=== PATIENT | female | born 1960 | race Hispanic/Latino ===

== ENCOUNTER 2023-11-01 19:36 | Emergency (ER) | payer MEDICARE, OTHER ==
[~2023-11-01] VITALS: Ht 157.5 cm; Wt 107.5 kg
[2023-11-01 20:03] VITALS: BP 170/76; PULSE 98; RESP 20; O2SAT 97
[2023-11-01] MEDS: OCTYL 2-CYANOACRYLATE 1 EACH TP ONE (20:05)
== END 2023-11-01 20:16 | disposition home or self-care (01) ==
LOC: EDH 19:36
DX: S61.011A Laceration without foreign body of right thumb without damage to nail, initial encounter (principal); Z79.01 Long term (current) use of anticoagulants; Z95.2 Presence of prosthetic heart valve; W26.0XXA Contact with knife, initial encounter; Y93.89 Activity, other specified; Y92.89 Other specified places as the place of occurrence of the external cause; Y99.8 Other external cause status
CPT/HCPCS: 12001; 99282

== ENCOUNTER → 2024-09-01 | Outpatient (CLI) | payer MEDICARE | END | disposition home or self-care (01) | LOC: SHCH 10:53 | PROVIDERS: ATTEND Student in an Organized Health Care Education/Training Program | DX: I70.213 Atherosclerosis of native arteries of extremities with intermittent claudication, bilateral legs (principal) | CPT/HCPCS: 93925 ==

== ENCOUNTER → 2024-09-06 | Outpatient (CLI) | payer MEDICARE | END | disposition home or self-care (01) | LOC: SHCH 13:19 | PROVIDERS: ATTEND Student in an Organized Health Care Education/Training Program | DX: T82.01XA Breakdown (mechanical) of heart valve prosthesis, initial encounter (principal); I08.3 Combined rheumatic disorders of mitral, aortic and tricuspid valves; Y82.8 Other medical devices associated with adverse incidents | CPT/HCPCS: 93306 ==

== ENCOUNTER → 2024-09-18 | Outpatient (CLI) | payer MEDICARE ==
[~2024-09-18] VITALS: Ht 157.5 cm; Wt 103.0 kg
[~2024-09-18] MED LIST: ATOR40TA69 PO; FISH1CAP63 PO; GABA-529 PO; HYDR12.54 PO; LISI20TA24 PO; METF-446 PO; METO50TA18 PO; OXYB-66 PO; WARF-57 PO; WARF7.5T49 PO
[2024-09-18 09:43] LABS: BASOPHILS # (AUTO) 0.04 K/uL (0.00-0.20); BASOPHILS % (AUTO) 0.2 % (0.0-5.0); EOSINOPHILS # (AUTO) 0.29 K/uL (0.00-0.70); EOSINOPHILS % (AUTO) 1.6 % (0.0-8.0); HEMATOCRIT 43.3 % (36-48); LYMPHOCYTES # (AUTO) 3.1 K/uL (1.0-4.8); LYMPHOCYTES % (AUTO) 17.7 % (21.0-51.0); MEAN CORPUSCULAR HEMOGLOBIN 27.4 pg (27.0-33.0); MEAN CORPUSCULAR HGB CONC 32.3 g/dL (32.0-36.0); MEAN CORPUSCULAR VOLUME 84.7 fL (79-99); MONOCYTES # (AUTO) 1.2 K/uL (0.1-1.0); MONOCYTES % (AUTO) 6.9 % (3.0-13.0); PLATELET COUNT (AUTO) 327 K/uL (130-400); RED BLOOD CELL COUNT(AUTO) 5.11 MIL/uL (4.00-5.50); RED CELL DISTRIBUTION WIDTH 13.4 % (11.0-15.5); WHITE BLOOD COUNT (AUTO) 17.8 K/uL (4.8-10.8)
[2024-09-18 09:52] LABS: CREATININE 0.8 mg/dL (0.5-1.0); POTASSIUM 3.4 mmol/L (3.5-5.1)
[2024-09-18 09:53] VITALS: BP 174/70; PULSE 78; RESP 18; TEMP 97.2
[2024-09-18 09:53] LABS: PARTIAL THROMBOPLASTIN TIME 62.8 SEC (26.3-35.5)
[2024-09-18 10:03] LABS: PROTHROMBIN TIME 44.5 SEC (9.6-11.6)
[2024-09-18 10:04] LABS: INR 4.92 (0.85-1.15)
--- NOTE | 2024-09-18 10:06 | NUR ---
RE: LABS REPORTED PT 44.5/INR 4.[address] Vero TRACY (PATIENT ON WARFARIN DUE TO MECHANICAL HEART VALVE). PER DR TRACY, VENESSA PROCEDURE WILL BE RESCHEDULED.
--- NOTE | 2024-09-18 10:58 | EKG ---
[facility] Test Date: 2024-09-18 Test Time: 09:41:26 Pat Name: HEMAL WHITTAKER Department: [facility] Room: Gender: F Lithographed Plate Inspector: [id number] : 1960 Requested By: SHARMAINE TRACY Order Number: [id number] Reading MD: Gaston Chamberlain Measurements Intervals [place] Rate: 74 P: 9 VT: 183 QRS: -14 QRSD: 73 T: 60 QT: 438 QTc: 487 Interpretive Statements Sinus rhythm Probable left atrial enlargement Probable LVH with secondary repol abnrm No previous ECG available for comparison Electronically Signed On 09-19-2024 07:03:22 CDT by Gaston Chamberlain Please click the below link to view image of tracing.
--- NOTE | 2024-09-18 13:00 | NUR ---
RE: LABS REPORTED CBC RESULTS TO DR Abby TRACY, PATIENT ASYMPTOMATIC AND NOT TAKING STEROIDS. NO NEW ORDERS RECEIVED.
== END | disposition home or self-care (01) ==
LOC: DAH 08:58 → EDSTATUS 09:00
PROVIDERS: ATTEND Student in an Organized Health Care Education/Training Program
DX: Z01.818 Encounter for other preprocedural examination (principal); R01.1 Cardiac murmur, unspecified; I35.0 Nonrheumatic aortic (valve) stenosis; E11.9 Type 2 diabetes mellitus without complications; I10 Essential (primary) hypertension; E78.5 Hyperlipidemia, unspecified; R60.0 Localized edema; I73.9 Peripheral vascular disease, unspecified; N39.0 Urinary tract infection, site not specified; Z79.01 Long term (current) use of anticoagulants; Z95.2 Presence of prosthetic heart valve
CPT/HCPCS: 36415; 80048; 85025; 85610; 85730; 93005

== ENCOUNTER → 2024-09-20 | Outpatient (CLI) | payer MEDICARE ==
[2024-09-20 12:07] LABS: BASOPHILS # (AUTO) 0.03 K/uL (0.00-0.20); BASOPHILS % (AUTO) 0.2 % (0.0-5.0); EOSINOPHILS # (AUTO) 0.29 K/uL (0.00-0.70); EOSINOPHILS % (AUTO) 2.1 % (0.0-8.0); IMMATURE GRANULOCYTE ABSOLUTE 0.08 K/uL (0-1); LYMPHOCYTES # (AUTO) 2.8 K/uL (1.0-4.8); LYMPHOCYTES % (AUTO) 19.9 % (21.0-51.0); MEAN CORPUSCULAR HEMOGLOBIN 27.1 pg (27.0-33.0); MEAN CORPUSCULAR HGB CONC 32.1 g/dL (32.0-36.0); MEAN CORPUSCULAR VOLUME 84.3 fL (79-99); MONOCYTES # (AUTO) 1.1 K/uL (0.1-1.0); MONOCYTES % (AUTO) 7.5 % (3.0-13.0); NEUTROPHILS # (AUTO) 9.8 K/uL (1.8-7.7); NEUTROPHILS % (AUTO) 69.7 % (40.0-77.0); PLATELET COUNT (AUTO) 357 K/uL (130-400); RED BLOOD CELL COUNT(AUTO) 4.98 MIL/uL (4.00-5.50); RED CELL DISTRIBUTION WIDTH 13.5 % (11.0-15.5); WHITE BLOOD COUNT (AUTO) 14.1 K/uL (4.8-10.8)
[2024-09-20 12:21] LABS: CREATININE 0.9 mg/dL (0.5-1.0); POTASSIUM 3.6 mmol/L (3.5-5.1)
[2024-09-20 12:22] LABS: INR 2.29 (0.85-1.15); PROTHROMBIN TIME 22.4 SEC (9.6-11.6)
[2024-09-20 12:24] LABS: PARTIAL THROMBOPLASTIN TIME 42.4 SEC (26.3-35.5)
== END | disposition home or self-care (01) ==
LOC: LAB 09:15
PROVIDERS: ATTEND Student in an Organized Health Care Education/Training Program
DX: Z01.812 Encounter for preprocedural laboratory examination (principal); I73.9 Peripheral vascular disease, unspecified; Z79.899 Other long term (current) drug therapy; Z79.01 Long term (current) use of anticoagulants
CPT/HCPCS: 36415; 80048; 85025; 85610; 85730

== ENCOUNTER 2025-04-30 13:51 | Inpatient (IN) | payer MEDICARE ==
[~2025-04-30] VITALS: Ht 157.5 cm; Wt 101.6 kg
[~2025-04-30 13:51] MED LIST changes: +ASPI-1005 PO; +FURO40TA5 PO; -GABA-529 PO; -HYDR12.54 PO; +METO25 PO; -METO50TA18 PO; -OXYB-66 PO; +POTA10CA95 PO; -WARF7.5T49 PO; +Warfarin Sodium PO
[2025-04-30] MEDS ORDERED: LACTULOSE 20 GM/30 ML UDCUP PO PRN (15:00)
[2025-04-30] MEDS ORDERED: WARFARIN SODIUM 5 MG TAB PO ONE (16:00)
[2025-04-30] MEDS ORDERED: PoTASSium chl 10% ELIXIR 20MEQ 20 MEQ/15 ML UDCUP PO PRN (16:00)
--- NOTE | 2025-04-30 16:07 | HP ---
[facility] HISTORY AND PHYSICAL Date of Service: Apr 30, 2025 Time of Service: 15:36 HISTORY OF PRESENT ILLNESS: [ ] PCP: Brandy Verde DO Admission date: 04/30/25 CC: s/p left heart cath: for Heparin bridge with Coumadin This is a 64-year-old female that presents in ED as a direct admit patient underwent left heart catheterization today with Dr. Matthew lloyd given to patient has a history of mechanical heart valve her Coumadin was held for four days she will need heparin drip to bridge with Coumadin to reach therapeutic INR level to 2-3. Reports she is on Coumadin 5 mg Tuesday through Tuesday accept /Tuesday is 2.5 mg and Tuesday 5 mg. We will defer Coumadin doses to work order clerk's. Patient denied chest pain or shortness for breath. REVIEW OF SYSTEMS CONSTITUTIONAL: Denies fevers, chills, or night sweats. No unintentional weight loss reported. NEUROLOGICAL: Denies headache, amaurosis fugax, motor weakness, sensory defi cit, vertigo/spinning sensation, gait abnormalities, or tremors. ENT: No hearing loss, otalgia, otorrhea, rhinitis, rhinorrhea, hoarseness, or sore throat. CARDIOVASCULAR: Denies any exertional angina, dyspnea on exertion, orthopnea, paroxysmal nocturnal dyspnea, palpitations, life-threatening arrhythmias, claudication. PULMONARY: Denies any shortness of breath, cough, phlegm/sputum, hemoptysis, pleuritic chest pain. SLEEP: Denies morning headaches, daytime somnolence or napping. Denies difficulty falling asleep, staying asleep, waking from sleep. Denies knowledge of snoring. GASTROINTESTINAL: Denies any type of dysphagia to either liquids or solids. Denies nausea, vomiting, pyrosis, early satiety, abdominal pain, diarrhea, constipation, or changes in stool consistency or caliber. Denies coffee-ground emesis, hematemesis, hematochezia, or melanotic stools. GENITOURINARY: Denies frequency, urgency, nocturia, hematuria or incontinence (Storage/Irritative symptoms.) Low urinary stream, straining to void, urinary intermittency or hesitancy, splitting of the voiding stream, terminal dribbling. ENDOCRINOLOGIC: Denies polyuria, polydipsia, polyphagia or heat/cold intolerances. HEMATOLOGIC: Denies thrombophilia/previous clots, or coagulopathy/bleeding disorders. ONCOLOGIC: Denies personal history of malignancy. DERMATOLOGIC: Denies rashes or pruritus. PSYCHIATRIC: Denies any suicidal or homicidal ideation. Denies hallucinations. 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 Mechanical aortic valve replacement in 08/2015 , , left eye surgery ] PAST SOCIAL HISTORY: [ ] Denies smoking tobacco products and alcohol use lives with daughter FAMILY HISTORY: [ ] Noncontributory Coded Allergies: No Known Drug Allergies (Unverified Allergy, Unknown, 11/01/23) PHYSICAL EXAM GENERAL APPEARANCE: The patient is awake, alert, and oriented, in no acute cardiopulmonary distress. NEUROLOGICAL: Cranial nerves II-XII grossly intact. Motor is 5/5 in bilateral upper and lower extremities proximal to distal. No sensory deficits. HEENT: Face is symmetric. Pupils are equal and reactive. Extraocular movements are intact. NECK: Supple. No JVD. No thyromegaly. No submental, submandibular, pre- /postauricular, occipital or supraclavicular lymphadenopathy. CHEST: Normal chest expansion. No Telemetry. LUNGS: Absence of any rales, rhonchi or any wheezing. CARDIOVASCULAR: Regular. S1 and S2 normal. No appreciable rubs, murmurs or gallops. ABDOMEN: Soft, nontender, and nondistended. There is no rebound, voluntary guarding, or rigidity. : Deferred. No Tineo. EXTREMITIES: Non-edematous and not cyanotic. No clubbing. Good capillary refill. SKIN: No skin breakdown. Vital Sign (Last 24 Hours) 04/30/25 13:53 Temp 97.5 Pulse 91 Resp 18 B/P (MAP) 129/60 Pulse Ox 98 O2 Delivery Room Air LABS: Current Medications Medications (Trade) Dose Ordered Sig/Shante Route PRN Reason Start Time Stop Time Status Last Admin Dose Admin Acetaminophen (TYLenol 325MG TAB) 650 mg Q4H PRN PO TEMPERATURE GREATER THAN 101.5 04/30/25 15:00 05/30/25 14:59 Famotidine (Pepcid 20mg Tab) 20 mg BID PO 04/30/25 21:00 05/30/25 20:59 Heparin Sodium/ Dextrose 250 ml @ 0 mls/hr PROTOCOL IV 04/30/25 15:00 05/30/25 14:59 Lactulose (Constulose 20gm/ 30ml Udcup) 20 gm BID PRN PO CONSTIPATION 04/30/25 15:00 05/30/25 14:59 Ondansetron HCl (zoFRAN 4MG INJ) 4 mg Q6H PRN IVP NAUSEA/VOMITING 04/30/25 15:00 05/30/25 14:59 DIAGNOSTICS / RADIOLOGY: [ ] ASSESSMENT: Subtherapeutic INR POA Post left heart catheterization 04/30/2025 POA aortic valve stenosis with mechanical valve replacement on Coumadin POA Morbid obesity BMI 41.2 chronic problems: HTN, HLD, DM PLAN: [ ] This is a 64-year-old female treatment initiated heparin bridge therapy until the patient's INR reaches the therapeutic range of 2-3 as recommended by work order clerk's. We will do daily INR levels to adjust anticoagulation therapy as needed. Admit:PCCU condition: Fair Status: Full code IVF: [employer] work order clerk Drip: Heparin drip as per protocol bridging with Coumadin: Patient is on 5 mg Tuesday through Tuesday accept and Tuesday wishes 2.5 mg Tuesday 5 mg. will defer Coumadin dosage to work order clerk Labs cbc, cmp, mag+ Replace electrolytes as needed as per protocol to keep potassium above 4.0 magnesium 2.0. ac/hs monitoring with SSRI coverage Home medications reviewed and reconciled PRN: MEDICATIONS Tylenol 650 mg po every 4 hrs for fever Zofran 4 mg IV every 6 hrs for n/v bowel regiment: lactulose 20 gm PO BID PRN constipation Fall precaution Weight management was discussed Supportive measures: DVT ppx, GI ppx all questions answered time spent: > 35 min Supervising MD: Dr. Jefferson Escalante c/d This document was generated in part using voice recognition software, occasional wrong word or sound alike substitutions may have occurred due to the inherent limitations of voice recognition software. Read the chart carefully and recognize using context, where the substitutions have occurred. Although every effort was made to edit the content, entertainment usher and typing errors may occur ADVANCED CARE PLANNING 1. Which of the following were discussed? Hospice Care - Yes / No Therapeutic options - Yes / No Advance Directives - Yes / No Other discussions - 2. Discussed with who? 3. Voluntary nature of this service was explained to the patient? Yes / No 4. Amount of time spent - 5. Reviewed by Physician? (if this service was performed by NPP) Yes / No ATTESTATION BY PHYSICIAN I have seen and examined the patient. I reviewed the documentation, medical decision making, and treatment plan as noted by the mid-level provider above. I agree with the findings and plan of care. John Paulino IV, MD, [facility] Apr 30, 2025 16:06
[2025-04-30 16:33] LABS: INR 1.14 (0.85-1.15)
--- NOTE | 2025-04-30 17:42 | NUR ---
CARDIOLOGY CONSULT DR TRACY INFORMED PT CONSULT AND IS CURRENLTY IN THE ED ROUNDING.
--- NOTE | 2025-04-30 18:26 | NUR ---
CARDIOLOGY CONSULT: DR TRACY HAS BEEN IN TO ASSESS/EVALUATE THE PT
[2025-04-30 18:41] LABS: IMMATURE GRANULOCYTE ABSOLUTE 0.08 K/uL (0-1); NUCLEATED RED BLOOD CELLS 0.0 % (0.0-0.19); PLATELET COUNT (AUTO) 459 K/uL (130-400); RED BLOOD CELL COUNT(AUTO) 4.90 MIL/uL (4.00-5.50); RED CELL DISTRIBUTION WIDTH 15.6 % (11.0-15.5); WHITE BLOOD COUNT (AUTO) 14.2 K/uL (4.8-10.8)
[2025-04-30 19:15] VITALS: BP 149/74; PULSE 88; RESP 18; TEMP 98.1
--- NOTE | 2025-04-30 19:22 | CONS ---
[facility] CARDIOLOGY CONSULTATION NOTE Date Patient Seen: Apr 30, 2025 Time of Visit: 19:09 Reason for Consultation: [PAD ] History of Present Illness: [64 year old female patient that follows in cardiology clinic with Dr Ashlie Rodrigues, with a PMH of hypertension, M2 , hyperlipidemia ,mechanical aortic valve replacement with chronic anticoagulation with coumadin , PAD, she underwent a p eripheral angiogram today that showed : Right superficial femoral artery: Proximal focal 70-80% stenosis. Left superficial femoral artery: 80-90% proximal stenosis becoming 100% mid-distal GRISTMILLER and reconstitutes at the popliteal artery. Attempted/failed revascularization of the left SFA GRISTMILLER given excessive contras and radiation use the procedure was discontinued and the patient was admitted for coumadin bridging . Presenting ECG non ischemia, the patient denies any chest pain , palpitations, dyspnea or any other anginal equivalents. ] Past Medical History: [refer to chart ] Past Surgical History: [Refer to HPI ] Family History: [Refer to HPI ] Social History: [Refer to HPI ] Habits: [Never] smoker. [Denies] alcohol consumption. [Denies] illicit drug use Review of Systems: A review of 12 point systems was negative set per HPI Physical Examination: GENERAL: [No acute distress.] HEAD: [Normal with no signs of head trauma.] EYES: [PERRLA, EOMI, conjunctiva and sclera normal.] ENT: [Hearing grossly intact, normal oropharynx.] NECK: [Supple without JVD. There is no tenderness, lymphadenopathy, or masses. No thyromegaly. Normal carotid upstrokes without bruits.] LUNGS: [Clear breath sounds bilaterally. No wheezes, or rhonchi.] HEART: [Normal rate and rhythm. Normal S1 and S2 without murmurs, gallop or rub.] VASC: [Peripheral pulses +2 bilaterally.] ABD: [Bowel sounds normal, soft, nontender, no masses, no organomegaly. No audible bruits.] : [Not examined] LYMPH: [No lymphadenopathy noted.] EXT: [No clubbing, cyanosis or edema.] SKIN: [No rashes or lesions noted.] NEURO: [Awake, alert, and oriented x3. No focal sensory or strength deficits noted.] Vital Signs (last 8hr) Date Time Temp Pulse Resp B/P (MAP) Pulse Ox O2 Delivery O2 Flow Rate FiO2 04/30/25 18:48 98.1 91 18 128/59 96 Room Air* 0 21 04/30/25 13:53 97.5 91 18 129/60 98 Room Air Laboratory: [ ] Hematology Labs: Test 04/30/25 16:16 Range/Units White Blood Count 14.2 H 4.8-10.8 K/uL Red Blood Count 4.90 4.00-5.50 MIL/uL Hemoglobin 12.6 12.0-16.0 g/dL Hematocrit 40.0 36-48 % Mean Corpuscular Volume 81.6 79-99 fL Mean Corpuscular Hemoglobin 25.7 L 27.0-33.0 pg Mean Corpuscular Hemoglobin Concent 31.5 L 32.0-36.0 g/dL Red Cell Distribution Width 15.6 H 11.0-15.5 % Platelet Count 459 H 130-400 K/uL Mean Platelet Volume 10.2 7.5-10.5 fL Immature Granulocyte % (Auto) 0.6 0-1 % Neutrophils (%) (Auto) 75.8 40.0-77.0 % Lymphocytes (%) (Auto) 16.0 L 21.0-51.0 % Monocytes (%) (Auto) 4.9 3.0-13.0 % Eosinophils (%) (Auto) 2.5 0.0-8.0 % Basophils (%) (Auto) 0.2 0.0-5.0 % Neutrophils # (Auto) 10.7 H 1.8-7.7 K/uL Lymphocytes # (Auto) 2.3 1.0-4.8 K/uL Monocytes # (Auto) 0.7 0.1-1.0 K/uL Eosinophils # (Auto) 0.36 0.00-0.70 K/uL Basophils # (Auto) 0.03 0.00-0.20 K/uL Absolute Immature Granulocyte (auto 0.08 0-1 K/uL Nucleated Red Blood Cells 0.0 0.0-0.19 % Chemistry Labs: Test 04/30/25 17:53 Range/Units Whole Blood Glucose 255 H 70-110 MG/DL Coagulation Labs: Test 04/30/25 16:16 Range/Units Prothrombin Time 11.9 H 9.6-11.6 SEC Prothromb Time International Ratio 1.14 0.85-1.15 Activated Partial Thromboplast Time 27.1 26.3-35.5 SEC Diagnostics / Radiology: [Copy/Paste Echos/Imaging Report here] Assessment: History of mechanical aortic valve replacement Anticoagulant long-term use PAD Plan: [#PAD She underwent a peripheral angiogram 04-30-25 that showed : Right superficial femoral artery: Proximal focal 70-80% stenosis. Left superficial femoral artery: 80-90% proximal stenosis becoming 100% mid- distal GRISTMILLER and reconstitutes at the popliteal artery. Attempted/failed revascularization of the left SFA GRISTMILLER given excessive contras and radiation use the procedure was discontinued The patient was admitted for coumadin bridging with an INR goal of 2-3 The patient groin vascular access site appears clean The patient denies any cardiac symptoms or anginal equivalents Presenting ECG non ischemic, no telemetry event noted Keep on telemetry , monitor / replace electrolytes as needed Initiate IV Heparin infusion per protocol Start Coumadin 5mg PO with INR goal of 2-3 ] Thank you for this consult , cardiology will continue to follow along Matthew Rodrigues MD ATTESTATION BY PHYSICIAN I have seen and examined the patient, reviewed the above documentation, participated in medical decision making, made necessary modifications, and agree with the treatment plan as documented by my mid-level provider above. MD ROSSANA Duff JAMES R MD Apr 30, 2025 19:22
[2025-04-30 19:51] LABS: ASPARTATE AMINOTRANSFERASE 22.0 U/L (10-37); CREATININE 0.8 mg/dL (0.5-1.0); GLOMERULAR FILTR. RATE CALC 81.0 mL/min (>90); GLUCOSE,RANDOM 253.0 mg/dL (70-105); SODIUM SERUM 133.0 mmol/L (136-145); TOTAL PROTEIN, SERUM 7.7 g/dL (6.0-8.3); UREA NITROGEN, BLOOD 14.0 mg/dL (7-18)
[2025-04-30] MEDS ORDERED: FURO40TA5 PO (20:17)
[2025-04-30] MEDS ORDERED: WARF7.5T49 PO (20:17)
[2025-04-30] MEDS ORDERED: WARF-57 PO (20:17)
[2025-04-30] MEDS: FAMOTIDINE 20MG TAB PO SCH (21:16)
[2025-04-30 21:42] VITALS: O2SAT 96
[2025-05-01] VITALS (9 sets, daily range): BP systolic 130–157; BP diastolic 50–81; PULSE 69–79; RESP 16–18; TEMP 97.5–98.6; O2SAT 96–97
[2025-05-01 00:54] LABS: INR 1.14 (0.85-1.15)
[2025-05-01 07:16] LABS: IMMATURE GRANULOCYTE ABSOLUTE 0.05 K/uL (0-1); NUCLEATED RED BLOOD CELLS 0.0 % (0.0-0.19); PLATELET COUNT (AUTO) 397 K/uL (130-400); RED BLOOD CELL COUNT(AUTO) 4.83 MIL/uL (4.00-5.50); RED CELL DISTRIBUTION WIDTH 15.4 % (11.0-15.5); WHITE BLOOD COUNT (AUTO) 10.5 K/uL (4.8-10.8)
[2025-05-01 07:25] LABS: INR 1.09 (0.85-1.15)
--- NOTE | 2025-05-01 07:41 | PN ---
[facility] CARDIOLOGY PROGRESS NOTE Date Patient Seen: May 01, 2025 Time of Visit: 07:27 Interval History: [Will implement coumadin dosing today ] Physical Examination: GENERAL: [No acute distress.] HEAD: [Normal with no signs of head trauma.] EYES: [PERRLA, EOMI, conjunctiva and sclera normal.] ENT: [Hearing grossly intact, normal oropharynx.] NECK: [Supple without JVD. There is no tenderness, lymphadenopathy, or masses. No thyromegaly. Normal carotid upstrokes without bruits.] LUNGS: [Clear breath sounds bilaterally. No wheezes, or rhonchi.] HEART: [Normal rate and rhythm. Normal S1 and S2 without murmurs, gallop or rub.] VASC: [Peripheral pulses +2 bilaterally.] ABD: [Bowel sounds normal, soft, nontender, no masses, no organomegaly. No audible bruits.] : [Not examined] LYMPH: [No lymphadenopathy noted.] EXT: [No clubbing, cyanosis or edema.] SKIN: [No rashes or lesions noted.] NEURO: [Awake, alert, and oriented x3. No focal sensory or strength deficits noted.] Laboratory: [ ] Hematology Labs: Test 05/01/25 07:08 Range/Units White Blood Count 10.5 # 4.8-10.8 K/uL Red Blood Count 4.83 4.00-5.50 MIL/uL Hemoglobin 12.7 12.0-16.0 g/dL Hematocrit 39.0 36-48 % Mean Corpuscular Volume 80.7 79-99 fL Mean Corpuscular Hemoglobin 26.3 L 27.0-33.0 pg Mean Corpuscular Hemoglobin Concent 32.6 32.0-36.0 g/dL Red Cell Distribution Width 15.4 11.0-15.5 % Platelet Count 397 130-400 K/uL Mean Platelet Volume 9.6 7.5-10.5 fL Immature Granulocyte % (Auto) 0.5 0-1 % Neutrophils (%) (Auto) 65.0 40.0-77.0 % Lymphocytes (%) (Auto) 24.6 21.0-51.0 % Monocytes (%) (Auto) 5.3 3.0-13.0 % Eosinophils (%) (Auto) 4.3 0.0-8.0 % Basophils (%) (Auto) 0.3 0.0-5.0 % Neutrophils # (Auto) 6.8 1.8-7.7 K/uL Lymphocytes # (Auto) 2.6 1.0-4.8 K/uL Monocytes # (Auto) 0.6 0.1-1.0 K/uL Eosinophils # (Auto) 0.45 0.00-0.70 K/uL Basophils # (Auto) 0.03 0.00-0.20 K/uL Absolute Immature Granulocyte (auto 0.05 0-1 K/uL Nucleated Red Blood Cells 0.0 0.0-0.19 % Chemistry Labs: Test 05/01/25 05:45 04/30/25 16:16 Range/Units Whole Blood Glucose 265 H 70-110 MG/DL Sodium Level 133 L 136-145 mmol/L Potassium Level 3.8 3.5-5.1 mmol/L Chloride Level 98 L 101-111 mmol/L Carbon Dioxide Level 25 21-32 mmol/L Blood Urea Nitrogen 14 7-18 mg/dL Creatinine 0.8 0.5-1.0 mg/dL Glomerular Filtration Rate Calc 81 >90 mL/min Random Glucose 253 H 70-105 mg/dL Total Calcium 9.0 8.5-10.1 mg/dL Total Bilirubin 0.4 0.2-1.0 mg/dL Aspartate Amino Transf (AST/SGOT) 22 10-37 U/L Alanine Aminotransferase (ALT/SGPT) 29 12-78 U/L Alkaline Phosphatase 139 H 50-136 U/L Total Protein 7.7 6.0-8.3 g/dL Albumin 3.2 L 3.5-5.0 g/dL Coagulation Labs: Test 05/01/25 07:08 Range/Units Prothrombin Time 11.5 9.6-11.6 SEC Prothromb Time International Ratio 1.09 0.85-1.15 Activated Partial Thromboplast Time 78.0 H 26.3-35.5 SEC Diagnostics / Radiology: [Copy/Paste Echos/Imaging Report here] Impression and Plan: [History of mechanical aortic valve replacement Anticoagulant long-term use PAD Plan: [#PAD She underwent a peripheral angiogram 04-30-25 that showed: Right superficial femoral artery: Proximal focal 70-80% stenosis. Left superficial femoral artery: 80-90% proximal stenosis becoming 100% mid- distal EQUITY RESEARCH ANALYST and reconstitutes at the popliteal artery. Attempted/failed revascularization of the left SFA EQUITY RESEARCH ANALYST given excessive contrast and radiation use the procedure was discontinued The patient was admitted for coumadin bridging with an INR goal of 2-3 The patient groin vascular access site appears clean The patient denies any cardiac symptoms or anginal equivalents Presenting ECG non ischemic, no telemetry event noted Keep on telemetry , monitor / replace electrolytes as needed Initiate IV Heparin infusion per protocol ordered Coumadin 7.5mg PO today with INR goal of 2-3 ] Thank you for this consult , cardiology will continue to follow along Ashlie Rodrigues MD ] ASHLIE RODRIGUES MD May 01, 2025 07:40
[2025-05-01] MEDS: LISINOPRIL 20 MG TABLET PO SCH (09:50)
--- NOTE | 2025-05-01 13:24 | NUR ---
DCP: HOME Sw met with pt who states her BLAS and daughter Rissa Vallejo [phone] live with her at home. Pt has no govt assistance. Pt states she is independent of all her ADLS, uses a cane, walker, w/c and hospital bed as needed. No in home care services. PCP is Cornelius Castillo. Pt to return home at co, denies dc needs.
--- NOTE | 2025-05-01 15:23 | PN ---
[facility] PROGRESS NOTE Date of Service: May 01, 2025 Time of Service: 8:30 HISTORY OF PRESENT ILLNESS: PCP: Brandy Verde DO Admission date: 04/30/25 CC: s/p left heart cath: for Heparin bridge with Coumadin This is a 64-year-old female that presents in ED as a direct admit patient underwent left heart catheterization today with Dr. Matthew lloyd given to patient has a history of mechanical heart valve her Coumadin was held for four days she will need heparin drip to bridge with Coumadin to reach therapeutic INR level to 2-3. Reports she is on Coumadin 5 mg Tuesday through Tuesday accept /Tuesday is 2.5 mg and Tuesday 5 mg. We will defer Coumadin doses to switchboard inspector's. Patient denied chest pain or shortness for breath. SUBJECTIVE: 12/29/2024: Patient was seen and examined at bedside. She is resting comfortably on chair and reports no acute events overnight. She will be started on Coumadin 7.5 mg and continues on heparin drip. The goal INR is 2-3 before discharge. All labs have been reviewed. Due to hyperglycemia, we will add Lantus to medium insulin sliding scale. REVIEW OF SYSTEMS CONSTITUTIONAL: Denies fevers, chills, or night sweats. No unintentional weight loss reported. NEUROLOGICAL: Denies headache, amaurosis fugax, motor weakness, sensory deficit, vertigo/spinning sensation, gait abnormalities, or tremors. ENT: No hearing loss, otalgia, otorrhea, rhinitis, rhinorrhea, hoarseness, or sore throat. CARDIOVASCULAR: Denies any exertional angina, dyspnea on exertion, orthopnea, paroxysmal nocturnal dyspnea, palpitations, life-threatening arrhythmias, claudication. PULMONARY: Denies any shortness of breath, cough, phlegm/sputum, hemoptysis, pleuritic chest pain. SLEEP: Denies morning headaches, daytime somnolence or napping. Denies difficulty falling asleep, staying asleep, waking from sleep. Denies knowledge of snoring. GASTROINTESTINAL: Denies any type of dysphagia to either liquids or solids. Denies nausea, vomiting, pyrosis, early satiety, abdominal pain, diarrhea, constipation, or changes in stool consistency or caliber. Denies coffee-ground emesis, hematemesis, hematochezia, or melanotic stools. GENITOURINARY: Denies frequency, urgency, nocturia, hematuria or incontinence (Storage/Irritative symptoms.) Low urinary stream, straining to void, urinary intermittency or hesitancy, splitting of the voiding stream, terminal dribbling. PHYSICAL EXAM GENERAL APPEARANCE: The patient is awake, alert, and oriented, in no acute cardiopulmonary distress. NEUROLOGICAL: Cranial nerves II-XII grossly intact. Motor is 5/5 in bilateral upper and lower extremities proximal to distal. No sensory deficits. HEENT: Face is symmetric. NECK: Supple. No JVD. No thyromegaly. No submental, submandibular, pre- /postauricular, occipital or supraclavicular lymphadenopathy. CHEST: Normal chest expansion. No Telemetry. LUNGS: Absence of any rales, rhonchi or any wheezing. CARDIOVASCULAR: Regular. S1 and S2 normal. No appreciable rubs, murmurs or gallops. ABDOMEN: Soft, nontender, and nondistended. There is no rebound, voluntary guarding, or rigidity. : Deferred. No Tineo. EXTREMITIES: Non-edematous and not cyanotic. No clubbing. Good capillary refill. SKIN: No skin breakdown. Vital Signs (last 8hr) Date Time Temp Pulse Resp B/P (MAP) Pulse Ox O2 Delivery O2 Flow Rate FiO2 05/01/25 12:00 98.2 75 16 143/81 97 Room Air 05/01/25 08:06 97.5 71 16 157/75 96 Room Air 05/01/25 08:00 96 Room Air* 0 21 LABS: Laboratory: Test 05/01/25 12:39 05/01/25 11:47 05/01/25 07:08 04/30/25 16:16 Range/Units Activated Partial Thromboplast Time 54.5 #H 26.3-35.5 SEC Whole Blood Glucose 272 H 70-110 MG/DL White Blood Count 10.5 # 4.8-10.8 K/uL Red Blood Count 4.83 4.00-5.50 MIL/uL Hemoglobin 12.7 12.0-16.0 g/dL Hematocrit 39.0 36-48 % Mean Corpuscular Volume 80.7 79-99 fL Mean Corpuscular Hemoglobin 26.3 L 27.0-33.0 pg Mean Corpuscular Hemoglobin Concent 32.6 32.0-36.0 g/dL Red Cell Distribution Width 15.4 11.0-15.5 % Platelet Count 397 130-400 K/uL Mean Platelet Volume 9.6 7.5-10.5 fL Immature Granulocyte % (Auto) 0.5 0-1 % Neutrophils (%) (Auto) 65.0 40.0-77.0 % Lymphocytes (%) (Auto) 24.6 21.0-51.0 % Monocytes (%) (Auto) 5.3 3.0-13.0 % Eosinophils (%) (Auto) 4.3 0.0-8.0 % Basophils (%) (Auto) 0.3 0.0-5.0 % Neutrophils # (Auto) 6.8 1.8-7.7 K/uL Lymphocytes # (Auto) 2.6 1.0-4.8 K/uL Monocytes # (Auto) 0.6 0.1-1.0 K/uL Eosinophils # (Auto) 0.45 0.00-0.70 K/uL Basophils # (Auto) 0.03 0.00-0.20 K/uL Absolute Immature Granulocyte (auto 0.05 0-1 K/uL Nucleated Red Blood Cells 0.0 0.0-0.19 % Prothrombin Time 11.5 9.6-11.6 SEC Prothromb Time International Ratio 1.09 0.85-1.15 Sodium Level 133 L 136-145 mmol/L Potassium Level 3.8 3.5-5.1 mmol/L Chloride Level 98 L 101-111 mmol/L Carbon Dioxide Level 25 21-32 mmol/L Blood Urea Nitrogen 14 7-18 mg/dL Creatinine 0.8 0.5-1.0 mg/dL Glomerular Filtration Rate Calc 81 >90 mL/min Random Glucose 253 H 70-105 mg/dL Total Calcium 9.0 8.5-10.1 mg/dL Total Bilirubin 0.4 0.2-1.0 mg/dL Aspartate Amino Transf (AST/SGOT) 22 10-37 U/L Alanine Aminotransferase (ALT/SGPT) 29 12-78 U/L Alkaline Phosphatase 139 H 50-136 U/L Total Protein 7.7 6.0-8.3 g/dL Albumin 3.2 L 3.5-5.0 g/dL Current Medications Medications (Trade) Dose Ordered Sig/Shante Route PRN Reason Start Time Stop Time Status Last Admin Dose Admin Acetaminophen (TYLenol 325MG TAB) 650 mg Q4H PRN PO TEMPERATURE GREATER THAN 101.5 04/30/25 15:00 05/30/25 14:59 Atorvastatin Calcium (LIPItor 40MG) 40 mg HS PO 04/30/25 21:00 05/30/25 20:59 04/30/25 21:16 40 MG Famotidine (Pepcid 20mg Tab) 20 mg BID PO 04/30/25 21:00 05/30/25 20:59 05/01/25 09:50 20 MG Heparin Sodium (Porcine) (HEParin 5,000 UNIT VIAL) *calculation based on ACTUAL B... AD PRN IV HEPARIN PROTOCOL 04/30/25 19:30 05/30/25 19:29 04/30/25 18:33 8,000 UNIT Heparin Sodium/ Dextrose 250 ml @ 0 mls/hr PROTOCOL IV 04/30/25 15:00 05/30/25 14:59 04/30/25 18:13 17.35 MLS/HR Insulin Human Regular (humuLIN R 100 UNIT/ML 3ML) INSULIN SLIDING SCAL... ACHS SQ 04/30/25 16:30 05/30/25 16:29 05/01/25 12:09 10 UNIT Lactulose (Constulose 20gm/ 30ml Udcup) 20 gm BID PRN PO CONSTIPATION 04/30/25 15:00 05/30/25 14:59 Lisinopril (Prinivil 20mg) 20 mg DAILY PO 05/01/25 09:00 05/31/25 08:59 05/01/25 09:50 20 MG Magnesium Sulfate 50 ml @ 0 mls/hr PROTOCOL PRN IV low mag level 04/30/25 16:00 05/30/25 15:59 Metoprolol Tartrate (loprESSOR) 25 mg BID PO 04/30/25 21:00 05/30/25 20:59 05/01/25 09:50 25 MG Ondansetron HCl (zoFRAN 4MG INJ) 4 mg Q6H PRN IVP NAUSEA/VOMITING 04/30/25 15:00 05/30/25 14:59 Potassium Chloride 100 ml @ 100 mls/hr AD PRN IV POTASSIUM PROTOCOL 04/30/25 16:00 05/30/25 15:59 Potassium Chloride (K-Dur/Klor-Con 20meq) 20 meq AD PRN PO POTASSIUM PROTOCOL 04/30/25 16:00 05/30/25 15:59 Potassium Chloride (KCl 10% Elixir 20meq/15ml) 20 meq AD PRN PO POTASSIUM PROTOCOL 04/30/25 16:00 05/30/25 15:59 DIAGNOSTICS / RADIOLOGY: [ ] ASSESSMENT: Aortic valve stenosis with mechanical valve replacement on Coumadin POA Peripheral artery disease POA Subtherapeutic INR POA Post left heart catheterization 04/30/2025 POA Morbid obesity chronic problems: HTN, HLD, DM PLAN: Subtherapeutic INR, Aortic valve stenosis with mechanical valve replacement on Coumadin * The patient was admitted for Coumadin bridging with an INR goal of 2-3 * The patient groin vascular access site appears clean * The patient denies any cardiac symptoms or anginal equivalents * Keep on telemetry , monitor / replace electrolytes as needed * Continue IV Heparin infusion per protocol * ordered Coumadin 7.5mg PO today with INR goal of 2-3 * Repeat PT, APTT and INR as per protocol. * Follow Cardiology recommendations. Peripheral artery disease * She underwent a peripheral angiogram 04-30-25 that showed: Right superficial femoral artery: Proximal focal 70-80% stenosis. * Left superficial femoral artery: 80-90% proximal stenosis becoming 100% mid- distal TRAVELING SALES REPRESENTATIVE and reconstitutes at the popliteal artery. * Attempted/failed revascularization of the left SFA TRAVELING SALES REPRESENTATIVE given excessive contrast and radiation use the procedure was discontinued GI prophylaxis: Famotidine 20 mg b.i.d. p.o. ATTESTATION BY PHYSICIAN I have seen and examined the patient. I reviewed the documentation, medical decision making, and treatment plan as noted by the resident physician above. I agree with the findings and plan of care. MIRYAM ASH MD, MUHAMMAD H MD May 01, 2025 15:23
[2025-05-01] MEDS: WARFARIN SODIUM 7.5 MG TAB PO ONE (17:01)
[2025-05-02] VITALS (8 sets, daily range): BP systolic 125–140; BP diastolic 55–72; PULSE 66–86; RESP 16–18; TEMP 97.5–98.2; O2SAT 96–98
--- NOTE | 2025-05-02 05:30 | HMCIMG ---
EXAM: CR Chest, 1 View. CLINICAL HISTORY: s/p catheterization COMPARISON: None provided. FINDINGS: Sternal wire. LUNGS: The lungs show no infiltrate or other acute finding. PLEURAL SPACES: No pleural effusion or pneumothorax. MEDIASTINUM: The cardiomediastinal silhouette is mildly enlarged with pulmonary vascular congestion. BONES: No acute osseous abnormality. IMPRESSION: Stable cardiomegaly with pulmonary congestion. /[place]
[2025-05-02 07:38] LABS: NUCLEATED RED BLOOD CELLS 0.0 % (0.0-0.19); PLATELET COUNT (AUTO) 392.0 K/uL (130-400); RED BLOOD CELL COUNT(AUTO) 4.85 MIL/uL (4.00-5.50); RED CELL DISTRIBUTION WIDTH 15.4 % (11.0-15.5); WHITE BLOOD COUNT (AUTO) 11.8 K/uL (4.8-10.8)
[2025-05-02 07:48] LABS: INR 1.08 (0.85-1.15)
[2025-05-02 08:00] LABS: CREATININE 0.7 mg/dL (0.5-1.0); GLOMERULAR FILTR. RATE CALC 95.0 mL/min (>90); GLUCOSE,RANDOM 272.0 mg/dL (70-105); SODIUM SERUM 132.0 mmol/L (136-145); UREA NITROGEN, BLOOD 10.0 mg/dL (7-18)
[2025-05-02] MEDS: PoTASSium chloRIDE 20MEQ ER 20 MEQ ERTAB PO PRN (09:02)
[2025-05-02] MEDS: MAGNESIUM 2GM PREMIX 50ML 50 ML IV PRN (09:03)
--- NOTE | 2025-05-02 11:12 | PN ---
[facility] CARDIOLOGY PROGRESS NOTE Cardiology progress note dictated for Ashlie Rodrigues MD Date Patient Seen: May 02, 2025 Time of Visit: 11:12 Interval History: The patient is maintained on a heparin infusion. INR of 1.08 today. Physical Examination: GENERAL: No acute distress. HEAD: Normal with no signs of head trauma. EYES: conjunctiva and sclera normal two right eye. NECK: Supple without JVD. LUNGS: Clear breath sounds bilaterally. No wheezes, or rhonchi. HEART: Normal rate and rhythm. Normal S1 and S2 without murmurs, gallop or rub. VASC: Unable to palpate bilateral DP pulses, feet are warm to touch. EXT: No clubbing, cyanosis or edema. Right groin dressing place, no hematoma noted NEURO: Awake, alert, and oriented x3. No focal neurological deficits noted. Laboratory: Hematology Labs: Test 05/02/25 07:10 05/01/25 07:08 Range/Units White Blood Count 11.8 H 4.8-10.8 K/uL Red Blood Count 4.85 4.00-5.50 MIL/uL Hemoglobin 12.5 12.0-16.0 g/dL Hematocrit 38.5 36-48 % Mean Corpuscular Volume 79.4 79-99 fL Mean Corpuscular Hemoglobin 25.8 L 27.0-33.0 pg Mean Corpuscular Hemoglobin Concent 32.5 32.0-36.0 g/dL Red Cell Distribution Width 15.4 11.0-15.5 % Platelet Count 392 130-400 K/uL Mean Platelet Volume 9.8 7.5-10.5 fL Nucleated Red Blood Cells 0.0 0.0-0.19 % Immature Granulocyte % (Auto) 0.5 0-1 % Neutrophils (%) (Auto) 65.0 40.0-77.0 % Lymphocytes (%) (Auto) 24.6 21.0-51.0 % Monocytes (%) (Auto) 5.3 3.0-13.0 % Eosinophils (%) (Auto) 4.3 0.0-8.0 % Basophils (%) (Auto) 0.3 0.0-5.0 % Neutrophils # (Auto) 6.8 1.8-7.7 K/uL Lymphocytes # (Auto) 2.6 1.0-4.8 K/uL Monocytes # (Auto) 0.6 0.1-1.0 K/uL Eosinophils # (Auto) 0.45 0.00-0.70 K/uL Basophils # (Auto) 0.03 0.00-0.20 K/uL Absolute Immature Granulocyte (auto 0.05 0-1 K/uL Chemistry Labs: Test 05/02/25 07:10 05/02/25 05:25 04/30/25 16:16 Range/Units Sodium Level 132 L 136-145 mmol/L Potassium Level 3.6 3.5-5.1 mmol/L Chloride Level 98 L 101-111 mmol/L Carbon Dioxide Level 23 21-32 mmol/L Blood Urea Nitrogen 10 7-18 mg/dL Creatinine 0.7 0.5-1.0 mg/dL Glomerular Filtration Rate Calc 95 >90 mL/min Random Glucose 272 H 70-105 mg/dL Total Calcium 8.8 8.5-10.1 mg/dL Magnesium Level 1.70 L 1.80-2.40 mg/dL Whole Blood Glucose 243 H 70-110 MG/DL Total Bilirubin 0.4 0.2-1.0 mg/dL Aspartate Amino Transf (AST/SGOT) 22 10-37 U/L Alanine Aminotransferase (ALT/SGPT) 29 12-78 U/L Alkaline Phosphatase 139 H 50-136 U/L Total Protein 7.7 6.0-8.3 g/dL Albumin 3.2 L 3.5-5.0 g/dL Coagulation Labs: Test 05/02/25 07:10 05/01/25 18:40 Range/Units Prothrombin Time 11.4 9.6-11.6 SEC Prothromb Time International Ratio 1.08 0.85-1.15 Activated Partial Thromboplast Time 50.7 H 26.3-35.5 SEC Diagnostics / Radiology: Impression and Plan: History of mechanical aortic valve replacement Anticoagulant long-term use PAD #PAD She underwent a peripheral angiogram 04-30-25 that showed: Right superficial femoral artery: Proximal focal 70-80% stenosis. Left superficial femoral artery: 80-90% proximal stenosis becoming 100% mid- distal HOME VISIT FIELD CARE MANAGER and reconstitutes at the popliteal artery. Attempted/failed revascularization of the left SFA HOME VISIT FIELD CARE MANAGER given excessive contrast and radiation use the procedure was discontinued The patient was admitted for Coumadin bridging with an INR goal of 3-3.5 The patient groin vascular access site appears wet, and needs to be changed, nurse aware to change today. The patient denies any cardiac symptoms or anginal equivalents Presenting ECG non ischemic, no telemetry event noted SR 60-70's overnight Keep on telemetry, monitor/replace electrolytes as needed Continue IV Heparin infusion per protocol Plan for Coumadin 7.5mg po x 1 with INR goal of 3-3.5 JOAN VOGEL May 02, 2025 11:12 ASHLIE RODRIGUES MD May 02, 2025 12:01
--- NOTE | 2025-05-02 14:30 | PN ---
[facility] PROGRESS NOTE Date of Service: May 02, 2025 Time of Service: 8:30 HISTORY OF PRESENT ILLNESS: PCP: Brandy Verde DO Admission date: 04/30/25 CC: s/p left heart cath: for Heparin bridge with Coumadin This is a 64-year-old female that presents in ED as a direct admit patient underwent left heart catheterization today with Dr. Matthew lloyd given to patient has a history of mechanical heart valve her Coumadin was held for four days she will need heparin drip to bridge with Coumadin to reach therapeutic INR level to 2-3. Reports she is on Coumadin 5 mg Tuesday through Tuesday accept /Tuesday is 2.5 mg and Tuesday 5 mg. We will defer Coumadin doses to remediation consultant's. Patient denied chest pain or shortness for breath. SUBJECTIVE: 12/29/2024: Patient was seen and examined at bedside. She is resting comfortably on chair and reports no acute events overnight. She will be started on Coumadin 7.5 mg and continues on heparin drip. The goal INR is 2-3 before discharge. All labs have been reviewed. Due to hyperglycemia, we will add Lantus to medium insulin sliding scale. 12/30/2024: Patient was seen and examined at bedside. She is resting comfortably on chair and reports no acute events overnight. Her INR is 1.08. She received Coumadin 7.5 mg yesterday and will receive another 7.5mg dose today. She continues on heparin drip. All labs have been reviewed. Due to uncontrolled hyperglycemia, we will increase Lantus and add regular insulin while continuing medium insulin sliding scale. REVIEW OF SYSTEMS CONSTITUTIONAL: Denies fevers, chills, or night sweats. No unintentional weight loss reported. NEUROLOGICAL: Denies headache, amaurosis fugax, motor weakness, sensory deficit, vertigo/spinning sensation, gait abnormalities, or tremors. ENT: No hearing loss, otalgia, otorrhea, rhinitis, rhinorrhea, hoarseness, or sore throat. CARDIOVASCULAR: Denies any exertional angina, dyspnea on exertion, orthopnea, paroxysmal nocturnal dyspnea, palpitations, life-threatening arrhythmias, claudication. PULMONARY: Denies any shortness of breath, cough, phlegm/sputum, hemoptysis, pleuritic chest pain. SLEEP: Denies morning headaches, daytime somnolence or napping. Denies difficulty falling asleep, staying asleep, waking from sleep. Denies knowledge of snoring. GASTROINTESTINAL: Denies any type of dysphagia to either liquids or solids. Denies nausea, vomiting, pyrosis, early satiety, abdominal pain, diarrhea, constipation, or changes in stool consistency or caliber. Denies coffee-ground emesis, hematemesis, hematochezia, or melanotic stools. GENITOURINARY: Denies frequency, urgency, nocturia, hematuria or incontinence (Storage/Irritative symptoms.) Low urinary stream, straining to void, urinary intermittency or hesitancy, splitting of the voiding stream, terminal dribbling. PHYSICAL EXAM GENERAL APPEARANCE: The patient is awake, alert, and oriented, in no acute cardiopulmonary distress. NEUROLOGICAL: Cranial nerves II-XII grossly intact. Motor is 5/5 in bilateral upper and lower extremities proximal to distal. No sensory deficits. HEENT: Face is symmetric. NECK: Supple. No JVD. No thyromegaly. No submental, submandibular, pre- /postauricular, occipital or supraclavicular lymphadenopathy. CHEST: Normal chest expansion. No Telemetry. LUNGS: Absence of any rales, rhonchi or any wheezing. CARDIOVASCULAR: Regular. S1 and S2 normal. No appreciable rubs, murmurs or gallops. ABDOMEN: Soft, nontender, and nondistended. There is no rebound, voluntary guarding, or rigidity. : Deferred. No Tineo. EXTREMITIES: Non-edematous and not cyanotic. No clubbing. Good capillary refill. SKIN: No skin breakdown. Vital Signs (last 8hr) Date Time Temp Pulse Resp B/P (MAP) Pulse Ox O2 Delivery O2 Flow Rate FiO2 05/02/25 12:26 98.1 68 18 133/62 100 Room Air 05/02/25 08:05 98 Room Air* 0 21 05/02/25 07:35 97.5 75 16 132/65 95 Room Air LABS: Laboratory: Test 05/02/25 11:10 05/02/25 07:10 05/01/25 18:40 05/01/25 07:08 Range/Units Whole Blood Glucose 258 H 70-110 MG/DL White Blood Count 11.8 H 4.8-10.8 K/uL Red Blood Count 4.85 4.00-5.50 MIL/uL Hemoglobin 12.5 12.0-16.0 g/dL Hematocrit 38.5 36-48 % Mean Corpuscular Volume 79.4 79-99 fL Mean Corpuscular Hemoglobin 25.8 L 27.0-33.0 pg Mean Corpuscular Hemoglobin Concent 32.5 32.0-36.0 g/dL Red Cell Distribution Width 15.4 11.0-15.5 % Platelet Count 392 130-400 K/uL Mean Platelet Volume 9.8 7.5-10.5 fL Nucleated Red Blood Cells 0.0 0.0-0.19 % Prothrombin Time 11.4 9.6-11.6 SEC Prothromb Time International Ratio 1.08 0.85-1.15 Sodium Level 132 L 136-145 mmol/L Potassium Level 3.6 3.5-5.1 mmol/L Chloride Level 98 L 101-111 mmol/L Carbon Dioxide Level 23 21-32 mmol/L Blood Urea Nitrogen 10 7-18 mg/dL Creatinine 0.7 0.5-1.0 mg/dL Glomerular Filtration Rate Calc 95 >90 mL/min Random Glucose 272 H 70-105 mg/dL Total Calcium 8.8 8.5-10.1 mg/dL Magnesium Level 1.70 L 1.80-2.40 mg/dL Activated Partial Thromboplast Time 50.7 H 26.3-35.5 SEC Immature Granulocyte % (Auto) 0.5 0-1 % Neutrophils (%) (Auto) 65.0 40.0-77.0 % Lymphocytes (%) (Auto) 24.6 21.0-51.0 % Monocytes (%) (Auto) 5.3 3.0-13.0 % Eosinophils (%) (Auto) 4.3 0.0-8.0 % Basophils (%) (Auto) 0.3 0.0-5.0 % Neutrophils # (Auto) 6.8 1.8-7.7 K/uL Lymphocytes # (Auto) 2.6 1.0-4.8 K/uL Monocytes # (Auto) 0.6 0.1-1.0 K/uL Eosinophils # (Auto) 0.45 0.00-0.70 K/uL Basophils # (Auto) 0.03 0.00-0.20 K/uL Absolute Immature Granulocyte (auto 0.05 0-1 K/uL Test 04/30/25 16:16 Range/Units Total Bilirubin 0.4 0.2-1.0 mg/dL Aspartate Amino Transf (AST/SGOT) 22 10-37 U/L Alanine Aminotransferase (ALT/SGPT) 29 12-78 U/L Alkaline Phosphatase 139 H 50-136 U/L Total Protein 7.7 6.0-8.3 g/dL Albumin 3.2 L 3.5-5.0 g/dL Current Medications Medications (Trade) Dose Ordered Sig/Shante Route PRN Reason Start Time Stop Time Status Last Admin Dose Admin Acetaminophen (TYLenol 325MG TAB) 650 mg Q4H PRN PO TEMPERATURE GREATER THAN 101.5 04/30/25 15:00 05/30/25 14:59 Atorvastatin Calcium (LIPItor 40MG) 40 mg HS PO 04/30/25 21:00 05/30/25 20:59 05/01/25 20:32 40 MG Famotidine (Pepcid 20mg Tab) 20 mg BID PO 04/30/25 21:00 05/30/25 20:59 05/02/25 09:03 20 MG Heparin Sodium (Porcine) (HEParin 5,000 UNIT VIAL) *calculation based on ACTUAL B... AD PRN IV HEPARIN PROTOCOL 04/30/25 19:30 05/30/25 19:29 04/30/25 18:33 8,000 UNIT Heparin Sodium/ Dextrose 250 ml @ 0 mls/hr PROTOCOL IV 04/30/25 15:00 05/30/25 14:59 05/02/25 07:41 13.18 MLS/HR Insulin Glargine (LANtus 100 UNITS/ML 10 ML VIAL) 10 units HS SQ 05/01/25 21:00 05/31/25 20:59 05/01/25 21:02 10 UNITS Insulin Human Regular (humuLIN R 100 UNIT/ML 3ML) INSULIN SLIDING SCAL... ACHS SQ 04/30/25 16:30 05/30/25 16:29 05/02/25 12:40 10 UNIT Lactulose (Constulose 20gm/ 30ml Udcup) 20 gm BID PRN PO CONSTIPATION 04/30/25 15:00 05/30/25 14:59 Lisinopril (Prinivil 20mg) 20 mg DAILY PO 05/01/25 09:00 05/31/25 08:59 05/02/25 09:03 20 MG Magnesium Sulfate 50 ml @ 0 mls/hr PROTOCOL PRN IV low mag level 04/30/25 16:00 05/30/25 15:59 05/02/25 09:03 25 MLS/HR Metoprolol Tartrate (loprESSOR) 25 mg BID PO 04/30/25 21:00 05/30/25 20:59 05/02/25 09:03 25 MG Ondansetron HCl (zoFRAN 4MG INJ) 4 mg Q6H PRN IVP NAUSEA/VOMITING 04/30/25 15:00 05/30/25 14:59 Potassium Chloride 100 ml @ 100 mls/hr AD PRN IV POTASSIUM PROTOCOL 04/30/25 16:00 05/30/25 15:59 Potassium Chloride (K-Dur/Klor-Con 20meq) 20 meq AD PRN PO POTASSIUM PROTOCOL 04/30/25 16:00 05/30/25 15:59 05/02/25 11:35 20 MEQ Potassium Chloride (KCl 10% Elixir 20meq/15ml) 20 meq AD PRN PO POTASSIUM PROTOCOL 04/30/25 16:00 05/30/25 15:59 DIAGNOSTICS / RADIOLOGY: [ ] ASSESSMENT: Subtherapeutic INR POA Aortic valve stenosis with mechanical valve replacement on Coumadin POA Uncontrolled Hyperglycemia, POA Peripheral artery disease POA Post left heart catheterization 04/30/2025 POA Morbid obesity chronic problems: HTN, HLD, DM PLAN: Subtherapeutic INR, Aortic valve stenosis with mechanical valve replacement on Coumadin * The patient was admitted for Coumadin bridging with an INR goal of 2-3 * The patient groin vascular access site appears clean * The patient denies any cardiac symptoms or anginal equivalents * Keep on telemetry , monitor / replace electrolytes as needed * Continue IV Heparin infusion per protocol * ordered Coumadin 7.5mg PO today with INR goal of 2-3 * Repeat PT, APTT and INR as per protocol. * Follow Cardiology recommendations. Uncontrolled Hyperglycemia * Add 6U regular insulin TID * Increase Lantus to 15U daily * Maintain on insulin sliding scale. * Measure Blood glucose at repeat intervals. Peripheral artery disease * She underwent a peripheral angiogram 04-30-25 that showed: Right superficial femoral artery: Proximal focal 70-80% stenosis. * Left superficial femoral artery: 80-90% proximal stenosis becoming 100% mid- distal SUPERINTENDENT COMMISSARY and reconstitutes at the popliteal artery. * Attempted/failed revascularization of the left SFA SUPERINTENDENT COMMISSARY given excessive c ontrast and radiation use the procedure was discontinued GI prophylaxis: Famotidine 20 mg b.i.d. p.o. ATTESTATION BY PHYSICIAN I have seen and examined the patient. I reviewed the documentation, medical de cision making, and treatment plan as noted by the resident physician above. I agree with the findings and plan of care. ALEXANDR CHRISTOPHER IV, MD, MUHAMMAD H MD May 02, 2025 14:30
[2025-05-02] MEDS: WARFARIN SODIUM 7.5 MG TAB PO ONE (16:39)
[2025-05-03] VITALS (8 sets, daily range): BP systolic 122–151; BP diastolic 53–77; PULSE 63–76; RESP 18–20; TEMP 97.6–98.3; O2SAT 97
[2025-05-03 05:19] LABS: NUCLEATED RED BLOOD CELLS 0.0 % (0.0-0.19); PLATELET COUNT (AUTO) 357.0 K/uL (130-400); RED BLOOD CELL COUNT(AUTO) 4.56 MIL/uL (4.00-5.50); RED CELL DISTRIBUTION WIDTH 15.6 % (11.0-15.5); WHITE BLOOD COUNT (AUTO) 10.4 K/uL (4.8-10.8)
[2025-05-03 05:33] LABS: INR 1.25 (0.85-1.15)
[2025-05-03 05:38] LABS: CREATININE 0.7 mg/dL (0.5-1.0); GLOMERULAR FILTR. RATE CALC 95.0 mL/min (>90); GLUCOSE,RANDOM 217.0 mg/dL (70-105); SODIUM SERUM 134.0 mmol/L (136-145); UREA NITROGEN, BLOOD 10.0 mg/dL (7-18)
--- NOTE | 2025-05-03 07:22 | PN ---
[facility] PROGRESS NOTE Date Patient Seen: May 03, 2025 Time of Visit: 07:20 Interval History: [Will give 10 mg once coumadin, INR 1.25 ] Physical Examination: GENERAL: [No acute distress.] HEAD: [Normal with no signs of head trauma.] EYES: [PERRLA, EOMI, conjunctiva and sclera normal.] ENT: [Hearing grossly intact, normal oropharynx.] NECK: [Supple without JVD. There is no tenderness, lymphadenopathy, or masses. No thyromegaly. Normal carotid upstrokes without bruits.] LUNGS: [Clear breath sounds bilaterally. No wheezes, or rhonchi.] HEART: [Normal rate and rhythm. crisp mechanical click.] VASC: [Peripheral pulses +2 bilaterally.] ABD: [Bowel sounds normal, soft, nontender, no masses, no organomegaly. No audible bruits.] : [Not examined] LYMPH: [No lymphadenopathy noted.] EXT: [No clubbing, cyanosis or edema.] SKIN: [No rashes or lesions noted.] NEURO: [Awake, alert, and oriented x3. No focal sensory or strength deficits noted.] Laboratory: [ ] Hematology Labs: Test 05/03/25 05:09 Range/Units White Blood Count 10.4 4.8-10.8 K/uL Red Blood Count 4.56 4.00-5.50 MIL/uL Hemoglobin 11.8 L 12.0-16.0 g/dL Hematocrit 36.3 36-48 % Mean Corpuscular Volume 79.6 79-99 fL Mean Corpuscular Hemoglobin 25.9 L 27.0-33.0 pg Mean Corpuscular Hemoglobin Concent 32.5 32.0-36.0 g/dL Red Cell Distribution Width 15.6 H 11.0-15.5 % Platelet Count 357 130-400 K/uL Mean Platelet Volume 9.4 7.5-10.5 fL Nucleated Red Blood Cells 0.0 0.0-0.19 % Chemistry Labs: Test 05/03/25 05:39 05/03/25 05:09 05/02/25 07:10 Range/Units Whole Blood Glucose 201 H 70-110 MG/DL Sodium Level 134 L 136-145 mmol/L Potassium Level 3.8 3.5-5.1 mmol/L Chloride Level 100 L 101-111 mmol/L Carbon Dioxide Level 24 21-32 mmol/L Blood Urea Nitrogen 10 7-18 mg/dL Creatinine 0.7 0.5-1.0 mg/dL Glomerular Filtration Rate Calc 95 >90 mL/min Random Glucose 217 H 70-105 mg/dL Total Calcium 8.8 8.5-10.1 mg/dL Magnesium Level 1.70 L 1.80-2.40 mg/dL Coagulation Labs: Test 05/03/25 05:09 05/02/25 18:45 Range/Units Prothrombin Time 13.0 H 9.6-11.6 SEC Prothromb Time International Ratio 1.25 H 0.85-1.15 Activated Partial Thromboplast Time 54.3 H 26.3-35.5 SEC Diagnostics / Radiology: [Copy/Paste Echos/Imaging Report here] Impression and Plan: History of mechanical aortic valve replacement Anticoagulant long-term use PAD #PAD She underwent a peripheral angiogram 04-30-25 that showed: Right superficial femoral artery: Proximal focal 70-80% stenosis. 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 Attempted/failed revascularization of the left SFA FORGING ROLL OPERATOR given excessive contrast and radiation use the procedure was discontinued The patient was admitted for Coumadin bridging with an INR goal of 3-3.5 The patient groin vascular access site appears wet, and needs to be changed, nurse aware to change today. The patient denies any cardiac symptoms or anginal equivalents Presenting ECG non ischemic, no telemetry event noted SR 60-70's overnight Keep on telemetry, monitor/replace electrolytes as needed #Mechanical Aortic valve-with recent history of thrombus s/p removal of thrombus with Dr Steele admitted for bridging Continue IV Heparin infusion per protocol s/p 5 mg, then 7.5 mg, then 7.5 mg and now INR 1.25 gave 10 mg coumadin today INR goal of 3-3.5 ] Thank you for this consult , cardiology will continue to follow along Ashlie Rodrigues MD ] ASHLIE RODRIGUES MD May 03, 2025 07:22
--- NOTE | 2025-05-03 10:17 | PN ---
[facility] PROGRESS NOTE Date of Service: May 03, 2025 Time of Service: 10:10 HISTORY OF PRESENT ILLNESS: PCP: Brandy Verde DO Admission date: 04/30/25 CC: s/p left heart cath: for Heparin bridge with Coumadin This is a 64-year-old female that presents in ED as a direct admit patient underwent left heart catheterization today with Dr. Matthew lloyd given to patient has a history of mechanical heart valve her Coumadin was held for four days she will need heparin drip to bridge with Coumadin to reach therapeutic INR level to 2-3. Reports she is on Coumadin 5 mg Tuesday through Tuesday accept /Tuesday is 2.5 mg and Tuesday 5 mg. 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 Patient denied chest pain or shortness for breath. SUBJECTIVE: 05/01/2025: Patient was seen and examined at bedside. She is resting comfortably on chair and reports no acute events overnight. She will be started on Coumadin 7.5 mg and continues on heparin drip. The goal INR is 2-3 before discharge. All labs have been reviewed. Due to hyperglycemia, we will add Lantus to medium insulin sliding scale. 05/02/2025: Patient was seen and examined at bedside. She is resting comfortably on chair and reports no acute events overnight. Her INR is 1.08. She received Coumadin 7.5 mg yesterday and will receive another 7.5mg dose today. She continues on heparin drip. All labs have been reviewed. Due to uncontrolled hyperglycemia, we will increase Lantus and add regular insulin while continuing medium insulin sliding scale. 05/03/2025: Patient was seen and examined at bedside. Her INR has improved to 1.25 today. She will be given a single dose of 10 mg Coumadin today. Blood glucose levels have shown improvement. We will continue current management and we will continue to monitor patient and follow Cardiology recommendations. REVIEW OF SYSTEMS CONSTITUTIONAL: Denies fevers, chills, or night sweats. No unintentional weight loss reported. NEUROLOGICAL: Denies headache, amaurosis fugax, motor weakness, sensory deficit, vertigo/spinning sensation, gait abnormalities, or tremors. ENT: No hearing loss, otalgia, otorrhea, rhinitis, rhinorrhea, hoarseness, or sore throat. CARDIOVASCULAR: Denies any exertional angina, dyspnea on exertion, orthopnea, paroxysmal nocturnal dyspnea, palpitations, life-threatening arrhythmias, claudication. PULMONARY: Denies any shortness of breath, cough, phlegm/sputum, hemoptysis, pleuritic chest pain. SLEEP: Denies morning headaches, daytime somnolence or napping. Denies difficulty falling asleep, staying asleep, waking from sleep. Denies knowledge of snoring. GASTROINTESTINAL: Denies any type of dysphagia to either liquids or solids. Denies nausea, vomiting, pyrosis, early satiety, abdominal pain, diarrhea, constipation, or changes in stool consistency or caliber. Denies coffee-ground emesis, hematemesis, hematochezia, or melanotic stools. GENITOURINARY: Denies frequency, urgency, nocturia, hematuria or incontinence (Storage/Irritative symptoms.) Low urinary stream, straining to void, urinary intermittency or hesitancy, splitting of the voiding stream, terminal dribbling. PHYSICAL EXAM GENERAL APPEARANCE: The patient is awake, alert, and oriented, in no acute cardiopulmonary distress. NEUROLOGICAL: Cranial nerves II-XII grossly intact. Motor is 5/5 in bilateral upper and lower extremities proximal to distal. No sensory deficits. HEENT: Face is symmetric. NECK: Supple. No JVD. No thyromegaly. No submental, submandibular, pre- /postauricular, occipital or supraclavicular lymphadenopathy. CHEST: Normal chest expansion. No Telemetry. LUNGS: Absence of any rales, rhonchi or any wheezing. CARDIOVASCULAR: Regular. S1 and S2 normal. No appreciable rubs, murmurs or gallops. ABDOMEN: Soft, nontender, and nondistended. There is no rebound, voluntary guarding, or rigidity. : Deferred. No Tineo. EXTREMITIES: Non-edematous and not cyanotic. No clubbing. Good capillary refill. SKIN: No skin breakdown. Vital Signs (last 8hr) Date Time Temp Pulse Resp B/P (MAP) Pulse Ox O2 Delivery O2 Flow Rate FiO2 05/03/25 08:05 97 Room Air* 0 21 05/03/25 07:59 97.9 74 18 122/53 96 Room Air 05/03/25 04:01 98.2 75 18 131/55 96 Room Air LABS: Laboratory: Test 05/03/25 05:39 05/03/25 05:09 05/02/25 18:45 Range/Units Whole Blood Glucose 201 H 70-110 MG/DL White Blood Count 10.4 4.8-10.8 K/uL Red Blood Count 4.56 4.00-5.50 MIL/uL Hemoglobin 11.8 L 12.0-16.0 g/dL Hematocrit 36.3 36-48 % Mean Corpuscular Volume 79.6 79-99 fL Mean Corpuscular Hemoglobin 25.9 L 27.0-33.0 pg Mean Corpuscular Hemoglobin Concent 32.5 32.0-36.0 g/dL Red Cell Distribution Width 15.6 H 11.0-15.5 % Platelet Count 357 130-400 K/uL Mean Platelet Volume 9.4 7.5-10.5 fL Nucleated Red Blood Cells 0.0 0.0-0.19 % Prothrombin Time 13.0 H 9.6-11.6 SEC Prothromb Time International Ratio 1.25 H 0.85-1.15 Sodium Level 134 L 136-145 mmol/L Potassium Level 3.8 3.5-5.1 mmol/L Chloride Level 100 L 101-111 mmol/L Carbon Dioxide Level 24 21-32 mmol/L Blood Urea Nitrogen 10 7-18 mg/dL Creatinine 0.7 0.5-1.0 mg/dL Glomerular Filtration Rate Calc 95 >90 mL/min Random Glucose 217 H 70-105 mg/dL Hemoglobin A1c 11.2 H 4.0-6.0 % Estimated Average Glucose (eAG) 275 H 70-126 mg/dL Total Calcium 8.8 8.5-10.1 mg/dL Magnesium Level 1.90 1.80-2.40 mg/dL Activated Partial Thromboplast Time 54.3 H 26.3-35.5 SEC Current Medications Medications (Trade) Dose Ordered Sig/Shante Route PRN Reason Start Time Stop Time Status Last Admin Dose Admin Acetaminophen (TYLenol 325MG TAB) 650 mg Q4H PRN PO TEMPERATURE GREATER THAN 101.5 04/30/25 15:00 05/30/25 14:59 Atorvastatin Calcium (LIPItor 40MG) 40 mg HS PO 04/30/25 21:00 05/30/25 20:59 05/02/25 20:20 40 MG Famotidine (Pepcid 20mg Tab) 20 mg BID PO 04/30/25 21:00 05/30/25 20:59 05/03/25 08:56 20 MG Heparin Sodium (Porcine) (HEParin 5,000 UNIT VIAL) *calculation based on ACTUAL B... AD PRN IV HEPARIN PROTOCOL 04/30/25 19:30 05/30/25 19:29 04/30/25 18:33 8,000 UNIT Heparin Sodium/ Dextrose 250 ml @ 0 mls/hr PROTOCOL IV 04/30/25 15:00 05/30/25 14:59 05/03/25 03:41 13.21 MLS/HR Insulin Glargine (LANtus 100 UNITS/ML 10 ML VIAL) 10 units HS SQ 05/01/25 21:00 05/02/25 14:25 DC 05/01/25 21:02 10 UNITS Insulin Glargine (LANtus 100 UNITS/ML 10 ML VIAL) 15 units HS SQ 05/02/25 21:00 06/01/25 20:59 05/02/25 20:27 15 UNITS Insulin Human Regular (humuLIN R 100 UNIT/ML 3ML) 6 unit TIDAC SQ 05/02/25 17:00 05/08/25 12:00 05/03/25 08:57 6 UNIT Insulin Human Regular (humuLIN R 100 UNIT/ML 3ML) INSULIN SLIDING SCAL... ACHS SQ 04/30/25 16:30 05/30/25 16:29 05/03/25 06:35 6 UNIT Lactulose (Constulose 20gm/ 30ml Udcup) 20 gm BID PRN PO CONSTIPATION 04/30/25 15:00 05/30/25 14:59 Lisinopril (Prinivil 20mg) 20 mg DAILY PO 05/01/25 09:00 05/31/25 08:59 05/03/25 08:56 20 MG Magnesium Sulfate 50 ml @ 0 mls/hr PROTOCOL PRN IV low mag level 04/30/25 16:00 05/30/25 15:59 05/03/25 08:56 25 MLS/HR Metoprolol Tartrate (loprESSOR) 25 mg BID PO 04/30/25 21:00 05/30/25 20:59 05/03/25 08:56 25 MG Ondansetron HCl (zoFRAN 4MG INJ) 4 mg Q6H PRN IVP NAUSEA/VOMITING 04/30/25 15:00 05/30/25 14:59 Potassium Chloride 100 ml @ 100 mls/hr AD PRN IV POTASSIUM PROTOCOL 04/30/25 16:00 05/30/25 15:59 Potassium Chloride (K-Dur/Klor-Con 20meq) 20 meq AD PRN PO POTASSIUM PROTOCOL 04/30/25 16:00 05/30/25 15:59 05/03/25 08:56 20 MEQ Potassium Chloride (KCl 10% Elixir 20meq/15ml) 20 meq AD PRN PO POTASSIUM PROTOCOL 04/30/25 16:00 05/30/25 15:59 DIAGNOSTICS / RADIOLOGY: [ ] ASSESSMENT: Subtherapeutic INR POA Aortic valve stenosis with mechanical valve replacement on Coumadin POA Uncontrolled Hyperglycemia, POA Peripheral artery disease POA Post left heart catheterization 04/30/2025 POA Morbid obesity chronic problems: HTN, HLD, DM PLAN: Subtherapeutic INR, Aortic valve stenosis with mechanical valve replacement on Coumadin * The patient was admitted for Coumadin Heparin bridging with an INR goal of 3- 3.5 * The patient denies any cardiac symptoms or anginal equivalents * Keep on telemetry, monitor / replace electrolytes as needed * Continue IV Heparin infusion per protocol * INR has improved to 1.25 today. * Patient has received 7.5 mg Coumadin daily for the past 2 days. She will r eceive 10 mg Coumadin today. * Repeat PT, APTT and INR as per protocol. * Follow Cardiology recommendations. Uncontrolled Hyperglycemia * Continue 6U regular insulin TID * Lantus Increased to 15U daily * Maintain on insulin sliding scale. * Measure Blood glucose at repeat intervals. Peripheral artery disease * She underwent a peripheral angiogram 04-30-25 that showed: Right superficial femoral artery: Proximal focal 70-80% stenosis. 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 * Attempted/failed revascularization of the left SFA COMMERCIAL HVAC SERVICE TECHNICIAN given excessive contrast and radiation use the procedure was discontinued GI prophylaxis: Famotidine 20 mg b.i.d. p.o. ATTESTATION BY PHYSICIAN I have seen and examined the patient. I reviewed the documentation, medical decision making, and treatment plan as noted by the resident physician above. I agree with the findings and plan of care. ALEXANDR CHRISTOPHER IV, MD, MUHAMMAD H MD May 03, 2025 10:17
[2025-05-03] MEDS: WARFARIN SODIUM 10 MG TABLET PO ONE (16:09)
[2025-05-03 19:22] LABS: INR 1.31 (0.85-1.15)
[2025-05-04 04:01] VITALS: BP 147/75; PULSE 81; RESP 20; TEMP 98.1
[2025-05-04 04:10] LABS: IMMATURE GRANULOCYTE ABSOLUTE 0.09 K/uL (0-1); NUCLEATED RED BLOOD CELLS 0.0 % (0.0-0.19); PLATELET COUNT (AUTO) 357 K/uL (130-400); RED BLOOD CELL COUNT(AUTO) 4.67 MIL/uL (4.00-5.50); RED CELL DISTRIBUTION WIDTH 15.7 % (11.0-15.5); WHITE BLOOD COUNT (AUTO) 10.4 K/uL (4.8-10.8)
[2025-05-04 04:19] LABS: INR 1.59 (0.85-1.15)
[2025-05-04 04:22] LABS: CREATININE 0.6 mg/dL (0.5-1.0); GLOMERULAR FILTR. RATE CALC 99.0 mL/min (>90); GLUCOSE,RANDOM 189.0 mg/dL (70-105); SODIUM SERUM 135.0 mmol/L (136-145); UREA NITROGEN, BLOOD 9.0 mg/dL (7-18)
[2025-05-04 07:00] VITALS: BP 147/80; PULSE 76; RESP 18; TEMP 97.8
[2025-05-04 11:00] VITALS: BP 144/67; PULSE 69; RESP 18; TEMP 97.8
--- NOTE | 2025-05-04 11:47 | PN ---
PROGRESS NOTE PROBLEM LIST: History of peripheral arterial disease with occluded left SFA with unsuccessful revascularization taken place on this admission History of mechanical aortic valve replacement remote with recent thrombosed mechanical aortic valve treated with surgery thereby requiring higher doses of Coumadin for INR between 3-3.5 INTERIM HISTORY OF PRESENT ILLNESS: Patient has been maintained on a heparin drip as we are bridging to an INR of 3-3.5. INR this morning was at 1.59. Telemetry has been stable. REVIEW OF SYSTEMS: No fever, headache, chest pain, abdominal pain, nausea, vomiting, or diarrhea. VITAL SIGNS Vital Signs Date Time Temp Pulse Resp B/P (MAP) Pulse Ox O2 Delivery O2 Flow Rate FiO2 05/04/25 07:00 97.9 76 18 147/80 96 Room Air 05/03/25 20:00 0 21 Laboratory Tests 05/04/25 04:02 LABS/MEDS Laboratory Tests Test 05/03/25 15:26 05/03/25 18:56 05/03/25 19:02 05/04/25 04:02 Whole Blood Glucose 271 MG/DL (70-110) H 327 MG/DL (70-110) H Prothrombin Time 13.5 SEC (9.6-11.6) H 16.1 SEC (9.6-11.6) H Prothromb Time International Ratio 1.31 (0.85-1.15) H 1.59 (0.85-1.15) H Activated Partial Thromboplast Time 62.0 SEC (26.3-35.5) H White Blood Count 10.4 K/uL (4.8-10.8) Red Blood Count 4.67 MIL/uL (4.00-5.50) Hemoglobin 12.0 g/dL (12.0-16.0) Hematocrit 38.0 % (36-48) Mean Corpuscular Volume 81.4 fL (79-99) Mean Corpuscular Hemoglobin 25.7 pg (27.0-33.0) L Mean Corpuscular Hemoglobin Concent 31.6 g/dL (32.0-36.0) L Red Cell Distribution Width 15.7 % (11.0-15.5) H Platelet Count 357 K/uL (130-400) Mean Platelet Volume 9.2 fL (7.5-10.5) Immature Granulocyte % (Auto) 0.9 % (0-1) Neutrophils (%) (Auto) 63.9 % (40.0-77.0) Lymphocytes (%) (Auto) 23.4 % (21.0-51.0) Monocytes (%) (Auto) 6.7 % (3.0-13.0) Eosinophils (%) (Auto) 4.8 % (0.0-8.0) Basophils (%) (Auto) 0.3 % (0.0-5.0) Neutrophils # (Auto) 6.6 K/uL (1.8-7.7) Lymphocytes # (Auto) 2.4 K/uL (1.0-4.8) Monocytes # (Auto) 0.7 K/uL (0.1-1.0) Eosinophils # (Auto) 0.50 K/uL (0.00-0.70) Basophils # (Auto) 0.03 K/uL (0.00-0.20) Absolute Immature Granulocyte (auto 0.09 K/uL (0-1) Nucleated Red Blood Cells 0.0 % (0.0-0.19) Sodium Level 135 mmol/L (136-145) L Potassium Level 3.9 mmol/L (3.5-5.1) Chloride Level 101 mmol/L (101-111) Carbon Dioxide Level 25 mmol/L (21-32) Blood Urea Nitrogen 9 mg/dL (7-18) Creatinine 0.6 mg/dL (0.5-1.0) Glomerular Filtration Rate Calc 99 mL/min (>90) Random Glucose 189 mg/dL (70-105) H Total Calcium 8.6 mg/dL (8.5-10.1) Test 05/04/25 05:28 05/04/25 10:51 Whole Blood Glucose 202 MG/DL (70-110) H 212 MG/DL (70-110) H Current Medications Heparin Sodium/ Dextrose 250 ml @ 0 mls/hr PROTOCOL IV Last administered on 05/03/25at 22:48; Start 04/30/25 at 15:00; Stop 05/30/25 at 14:59 Acetaminophen 650 mg Q4H PRN PO; Start 04/30/25 at 15:00; Stop 05/30/25 at 14:59 Ondansetron HCl 4 mg Q6H PRN IVP; Start 04/30/25 at 15:00; Stop 05/30/25 at 14:59 Lactulose 20 gm BID PRN PO; Start 04/30/25 at 15:00; Stop 05/30/25 at 14:59 Famotidine 20 mg BID PO Last administered on 05/04/25at 10:15; Start 04/30/25 at 21:00; Stop 05/30/25 at 20:59 Lisinopril 20 mg DAILY PO Last administered on 05/04/25at 10:15; Start 05/01/25 at 09:00; Stop 05/31/25 at 08:59 Metoprolol Tartrate 25 mg BID PO Last administered on 05/04/25at 10:15; Start 04/30/25 at 21:00; Stop 05/30/25 at 20:59 Atorvastatin Calcium 40 mg HS PO Last administered on 05/03/25at 20:16; Start 04/30/25 at 21:00; Stop 05/30/25 at 20:59 Warfarin Sodium 5 mg WARF ONCE PO; Start 04/30/25 at 16:00; Stop 04/30/25 at 15:50; Status DC Insulin Human Regular INSULIN SLIDING SCAL... ACHS SQ Last administered on 05/04/25at 06:26; Start 04/30/25 at 16:30; Stop 05/30/25 at 16:29 Magnesium Sulfate 50 ml @ 0 mls/hr PROTOCOL PRN IV Last administered on 05/03/25at 08:56; Start 04/30/25 at 16:00; Stop 05/30/25 at 15:59 Potassium Chloride 100 ml @ 100 mls/hr AD PRN IV; Start 04/30/25 at 16:00; Stop 05/30/25 at 15:59 Potassium Chloride 20 meq AD PRN PO; Start 04/30/25 at 16:00; Stop 05/30/25 at 15:59 Potassium Chloride 20 meq AD PRN PO Last administered on 05/03/25at 08:56; Start 04/30/25 at 16:00; Stop 05/30/25 at 15:59 Heparin Sodium (Porcine) *calculation based on ACTUAL B... AD PRN IV Last administered on 04/30/25at 18:33; Start 04/30/25 at 19:30; Stop 05/30/25 at 19:29 Heparin Sodium (Porcine) 5,000 unit STK-MED ONCE .ROUTE; Start 04/30/25 at 18:27; Stop 04/30/25 at 18:27; Status DC Warfarin Sodium 7.5 mg ONCE ONCE PO Last administered on 05/01/25at 17:01; Start 05/01/25 at 17:00; Stop 05/01/25 at 17:01; Status DC Insulin Glargine 10 units HS SQ Last administered on 05/01/25at 21:02; Start 05/01/25 at 21:00; Stop 05/02/25 at 14:25; Status DC Warfarin Sodium 7.5 mg ONCE ONCE PO Last administered on 05/02/25at 16:39; Start 05/02/25 at 17:00; Stop 05/02/25 at 17:01; Status DC Insulin Glargine 15 units HS SQ Last administered on 05/03/25at 20:21; Start 05/02/25 at 21:00; Stop 06/01/25 at 20:59 Insulin Human Regular 6 unit TIDAC SQ Last administered on 05/03/25at 15:54; Start 05/02/25 at 17:00; Stop 05/03/25 at 16:33; Status DC Warfarin Sodium 10 mg ONCE ONCE PO Last administered on 05/03/25at 16:09; Start 05/03/25 at 17:00; Stop 05/03/25 at 17:01; Status DC Insulin Human Regular 8 unit TIDAC SQ; Start 05/03/25 at 17:00; Stop 05/03/25 at 16:35; Status DC Insulin Human Regular 6 unit TIDAC SQ Last administered on 05/04/25at 06:28; Start 05/03/25 at 17:00; Stop 06/02/25 at 16:59 Warfarin Sodium 7.5 mg ONCE ONCE PO; Start 05/04/25 at 17:00; Stop 05/04/25 at 17:01 PHYSICAL EXAMINATION: GENERAL: No acute distress. HEENT: Normocephalic, atraumatic. EXTREMITIES: No edema bilaterally. NEUROLOGIC: Cranial nerves 2-12 grossly intact. PSYCHIATRIC: Calm. TELEMETRY: Sinus rhythm ASSESSMENT: See above PLAN: At this time I will give patient warfarin at 7.5 mg today and we will repeat an INR tomorrow morning. Heparin drip will continue. We will continue to follow. KRYSTYNA ALBA MD May 04, 2025 11:47
--- NOTE | 2025-05-04 14:31 | PN ---
[facility] PROGRESS NOTE Date of Service: May 04, 2025 Time of Service: 9:30 HISTORY OF PRESENT ILLNESS: PCP: Brandy Verde DO Admission date: 04/30/25 CC: s/p left heart cath: for Heparin bridge with Coumadin This is a 64-year-old female that presents in ED as a direct admit patient underwent left heart catheterization today with Dr. Matthew lloyd given to patient has a history of mechanical heart valve her Coumadin was held for four days she will need heparin drip to bridge with Coumadin to reach therapeutic INR level to 2-3. Reports she is on Coumadin 5 mg Tuesday through Tuesday accept /Tuesday is 2.5 mg and Tuesday 5 mg. 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 Patient denied chest pain or shortness for breath. SUBJECTIVE: 05/01/2025: Patient was seen and examined at bedside. She is resting comfortably on chair and reports no acute events overnight. She will be started on Coumadin 7.5 mg and continues on heparin drip. The goal INR is 2-3 before discharge. All labs have been reviewed. Due to hyperglycemia, we will add Lantus to medium insulin sliding scale. 05/02/2025: Patient was seen and examined at bedside. She is resting comfortably on chair and reports no acute events overnight. Her INR is 1.08. She received Coumadin 7.5 mg yesterday and will receive another 7.5mg dose today. She continues on heparin drip. All labs have been reviewed. Due to uncontrolled hyperglycemia, we will increase Lantus and add regular insulin while continuing medium insulin sliding scale. 05/03/2025: Patient was seen and examined at bedside. Her INR has improved to 1.25 today. She will be given a single dose of 10 mg Coumadin today. Blood glucose levels have shown improvement. We will continue current management and we will continue to monitor patient and follow Cardiology recommendations. 05/04/2025: Patient was seen and examined at bedside. Her INR has improved to 1.59 today. She will be given a 7.5 mg Coumadin dose today. She continues on heparin drip. Blood glucose levels are still elevated and we will increase her Lantus and regular insulin dose. No acute events reported from overnight. We will continue to monitor patient and follow Cardiology recommendations. REVIEW OF SYSTEMS CONSTITUTIONAL: Denies fevers, chills, or night sweats. NEUROLOGICAL: Denies headache, amaurosis fugax, motor weakness, sensory deficit, vertigo/spinning sensation, gait abnormalities, or tremors. ENT: No hearing loss, otalgia, otorrhea, rhinitis, rhinorrhea, hoarseness, or sore throat. CARDIOVASCULAR: Denies any exertional angina, dyspnea on exertion, orthopnea, paroxysmal nocturnal dyspnea, palpitations, life-threatening arrhythmias, claudication. PULMONARY: Denies any shortness of breath, cough, phlegm/sputum, hemoptysis, pleuritic chest pain. SLEEP: Denies morning headaches, daytime somnolence or napping. Denies difficulty falling asleep, staying asleep, waking from sleep. Denies knowledge of snoring. GASTROINTESTINAL: Denies any type of dysphagia to either liquids or solids. Denies nausea, vomiting, pyrosis, early satiety, abdominal pain, diarrhea, constipation, or changes in stool consistency or caliber. Denies coffee-ground emesis, hematemesis, hematochezia, or melanotic stools. GENITOURINARY: Denies frequency, urgency, nocturia, hematuria or incontinence (Storage/Irritative symptoms.) Low urinary stream, straining to void, urinary intermittency or hesitancy, splitting of the voiding stream, terminal dribbling. PHYSICAL EXAM GENERAL APPEARANCE: The patient is awake, alert, and oriented, in no acute car diopulmonary distress. NEUROLOGICAL: Cranial nerves II-XII grossly intact. Motor is 5/5 in bilateral upper and lower extremities proximal to distal. No sensory deficits. HEENT: Face is symmetric. NECK: Supple. No JVD. No thyromegaly. No submental, submandibular, pre- /postauricular, occipital or supraclavicular lymphadenopathy. CHEST: Normal chest expansion. No Telemetry. LUNGS: Absence of any rales, rhonchi or any wheezing. CARDIOVASCULAR: Regular. S1 and S2 normal. No appreciable rubs, murmurs or gallops. ABDOMEN: Soft, nontender, and nondistended. There is no rebound, voluntary guarding, or rigidity. : Deferred. No Tineo. EXTREMITIES: Non-edematous and not cyanotic. No clubbing. Good capillary refill. SKIN: No skin breakdown. Vital Signs (last 8hr) Date Time Temp Pulse Resp B/P (MAP) Pulse Ox O2 Delivery O2 Flow Rate FiO2 05/04/25 11:00 97.9 69 18 144/67 95 Room Air 05/04/25 07:00 97.9 76 18 147/80 96 Room Air LABS: Laboratory: Test 05/04/25 10:51 05/04/25 04:02 05/03/25 18:56 05/03/25 05:09 Range/Units Whole Blood Glucose 212 H 70-110 MG/DL White Blood Count 10.4 4.8-10.8 K/uL Red Blood Count 4.67 4.00-5.50 MIL/uL Hemoglobin 12.0 12.0-16.0 g/dL Hematocrit 38.0 36-48 % Mean Corpuscular Volume 81.4 79-99 fL Mean Corpuscular Hemoglobin 25.7 L 27.0-33.0 pg Mean Corpuscular Hemoglobin Concent 31.6 L 32.0-36.0 g/dL Red Cell Distribution Width 15.7 H 11.0-15.5 % Platelet Count 357 130-400 K/uL Mean Platelet Volume 9.2 7.5-10.5 fL Immature Granulocyte % (Auto) 0.9 0-1 % Neutrophils (%) (Auto) 63.9 40.0-77.0 % Lymphocytes (%) (Auto) 23.4 21.0-51.0 % Monocytes (%) (Auto) 6.7 3.0-13.0 % Eosinophils (%) (Auto) 4.8 0.0-8.0 % Basophils (%) (Auto) 0.3 0.0-5.0 % Neutrophils # (Auto) 6.6 1.8-7.7 K/uL Lymphocytes # (Auto) 2.4 1.0-4.8 K/uL Monocytes # (Auto) 0.7 0.1-1.0 K/uL Eosinophils # (Auto) 0.50 0.00-0.70 K/uL Basophils # (Auto) 0.03 0.00-0.20 K/uL Absolute Immature Granulocyte (auto 0.09 0-1 K/uL Nucleated Red Blood Cells 0.0 0.0-0.19 % Prothrombin Time 16.1 H 9.6-11.6 SEC Prothromb Time International Ratio 1.59 H 0.85-1.15 Sodium Level 135 L 136-145 mmol/L Potassium Level 3.9 3.5-5.1 mmol/L Chloride Level 101 101-111 mmol/L Carbon Dioxide Level 25 21-32 mmol/L Blood Urea Nitrogen 9 7-18 mg/dL Creatinine 0.6 0.5-1.0 mg/dL Glomerular Filtration Rate Calc 99 >90 mL/min Random Glucose 189 H 70-105 mg/dL Total Calcium 8.6 8.5-10.1 mg/dL Activated Partial Thromboplast Time 62.0 H 26.3-35.5 SEC Hemoglobin A1c 11.2 H 4.0-6.0 % Estimated Average Glucose (eAG) 275 H 70-126 mg/dL Magnesium Level 1.90 1.80-2.40 mg/dL Current Medications Medications (Trade) Dose Ordered Sig/Shante Route PRN Reason Start Time Stop Time Status Last Admin Dose Admin Acetaminophen (TYLenol 325MG TAB) 650 mg Q4H PRN PO TEMPERATURE GREATER THAN 101.5 04/30/25 15:00 05/30/25 14:59 Atorvastatin Calcium (LIPItor 40MG) 40 mg HS PO 04/30/25 21:00 05/30/25 20:59 05/03/25 20:16 40 MG Famotidine (Pepcid 20mg Tab) 20 mg BID PO 04/30/25 21:00 05/30/25 20:59 05/04/25 10:15 20 MG Heparin Sodium (Porcine) (HEParin 5,000 UNIT VIAL) *calculation based on ACTUAL B... AD PRN IV HEPARIN PROTOCOL 04/30/25 19:30 05/30/25 19:29 04/30/25 18:33 8,000 UNIT Heparin Sodium/ Dextrose 250 ml @ 0 mls/hr PROTOCOL IV 04/30/25 15:00 05/30/25 14:59 05/03/25 22:48 13.21 MLS/HR Insulin Glargine (LANtus 100 UNITS/ML 10 ML VIAL) 10 units HS SQ 05/01/25 21:00 05/02/25 14:25 DC 05/01/25 21:02 10 UNITS Insulin Glargine (LANtus 100 UNITS/ML 10 ML VIAL) 15 units HS SQ 05/02/25 21:00 06/01/25 20:59 05/03/25 20:21 15 UNITS Insulin Human Regular (humuLIN R 100 UNIT/ML 3ML) 6 unit TIDAC SQ 05/02/25 17:00 05/03/25 16:33 DC 05/03/25 15:54 6 UNIT Insulin Human Regular (humuLIN R 100 UNIT/ML 3ML) 6 unit TIDAC SQ 05/03/25 17:00 06/02/25 16:59 05/04/25 12:21 6 UNIT Insulin Human Regular (humuLIN R 100 UNIT/ML 3ML) 8 unit TIDAC SQ 05/03/25 17:00 05/03/25 16:35 DC Insulin Human Regular (humuLIN R 100 UNIT/ML 3ML) INSULIN SLIDING SCAL... ACHS SQ 04/30/25 16:30 05/30/25 16:29 05/04/25 12:19 6 UNIT Lactulose (Constulose 20gm/ 30ml Udcup) 20 gm BID PRN PO CONSTIPATION 04/30/25 15:00 05/30/25 14:59 Lisinopril (Prinivil 20mg) 20 mg DAILY PO 05/01/25 09:00 05/31/25 08:59 05/04/25 10:15 20 MG Magnesium Sulfate 50 ml @ 0 mls/hr PROTOCOL PRN IV low mag level 04/30/25 16:00 05/30/25 15:59 05/03/25 08:56 25 MLS/HR Metoprolol Tartrate (loprESSOR) 25 mg BID PO 04/30/25 21:00 05/30/25 20:59 05/04/25 10:15 25 MG Ondansetron HCl (zoFRAN 4MG INJ) 4 mg Q6H PRN IVP NAUSEA/VOMITING 04/30/25 15:00 05/30/25 14:59 Potassium Chloride 100 ml @ 100 mls/hr AD PRN IV POTASSIUM PROTOCOL 04/30/25 16:00 05/30/25 15:59 Potassium Chloride (K-Dur/Klor-Con 20meq) 20 meq AD PRN PO POTASSIUM PROTOCOL 04/30/25 16:00 05/30/25 15:59 05/03/25 08:56 20 MEQ Potassium Chloride (KCl 10% Elixir 20meq/15ml) 20 meq AD PRN PO POTASSIUM PROTOCOL 04/30/25 16:00 05/30/25 15:59 DIAGNOSTICS / RADIOLOGY: [ ] ASSESSMENT: Subtherapeutic INR POA Aortic valve stenosis with mechanical valve replacement on Coumadin POA Uncontrolled Hyperglycemia, POA Peripheral artery disease POA Post left heart catheterization 04/30/2025 POA Morbid obesity chronic problems: HTN, HLD, DM PLAN: Subtherapeutic INR, Aortic valve stenosis with mechanical valve replacement on Coumadin * The patient was admitted for Coumadin Heparin bridging with an INR goal of 3- 3.5 * The patient denies any cardiac symptoms or anginal equivalents * Keep on telemetry, monitor / replace electrolytes as needed * Continue IV Heparin infusion per protocol * INR has improved to 1.59 today. * Give 7.5 mg Coumadin today. * Repeat PT, APTT and INR as per protocol. * Follow Cardiology recommendations. Uncontrolled Hyperglycemia * Increase regular insulin to 8U TID * Increase Lantus to 18U daily * Maintain on insulin sliding scale. * Measure Blood glucose at repeat intervals. Peripheral artery disease * She underwent a peripheral angiogram on 04-30-25 that showed: Right superficial femoral artery: Proximal focal 70-80% stenosis. * Left superficial femoral artery: 80-90% proximal stenosis becoming 100% mid- distal [employer] and reconstitutes at the popliteal artery. * Attempted/failed revascularization of the left SFA [employer] given excessive contrast and radiation use the procedure was discontinued GI prophylaxis: Famotidine 20 mg b.i.d. p.o. ATTESTATION BY PHYSICIAN I have seen and examined the patient. I reviewed the documentation, medical decision making, and treatment plan as noted by the resident physician above. I agree with the findings and plan of care. ALMA LIMON MD, MUHAMMAD H MD May 04, 2025 14:31
[2025-05-04 16:00] VITALS: BP 137/64; PULSE 70; RESP 18; TEMP 97.9
[2025-05-04] MEDS: WARFARIN SODIUM 7.5 MG TAB PO ONE (16:20)
[2025-05-04 18:52] LABS: INR 1.71 (0.85-1.15)
[2025-05-04 20:00] VITALS: BP 131/62; PULSE 72; RESP 20; TEMP 98.5; O2SAT 97
[2025-05-05] VITALS: BP 115/94; PULSE 63; RESP 20; TEMP 98
[2025-05-05 03:47] VITALS: BP 126/62; PULSE 65; RESP 20; TEMP 97.7
[2025-05-05 05:10] LABS: NUCLEATED RED BLOOD CELLS 0.0 % (0.0-0.19); PLATELET COUNT (AUTO) 353.0 K/uL (130-400); RED BLOOD CELL COUNT(AUTO) 4.49 MIL/uL (4.00-5.50); RED CELL DISTRIBUTION WIDTH 15.9 % (11.0-15.5); WHITE BLOOD COUNT (AUTO) 10.9 K/uL (4.8-10.8)
[2025-05-05 05:21] LABS: INR 2.03 (0.85-1.15)
[2025-05-05 05:23] LABS: CREATININE 0.6 mg/dL (0.5-1.0); GLOMERULAR FILTR. RATE CALC 99.0 mL/min (>90); GLUCOSE,RANDOM 204.0 mg/dL (70-105); SODIUM SERUM 132.0 mmol/L (136-145); UREA NITROGEN, BLOOD 11.0 mg/dL (7-18)
[2025-05-05 07:21] VITALS: BP 132/72; PULSE 70; RESP 18; TEMP 97.5
[2025-05-05 07:45] VITALS: O2SAT 98
[2025-05-05 11:24] VITALS: BP 141/69; PULSE 63; RESP 18; TEMP 97.6
--- NOTE | 2025-05-05 12:03 | PN ---
[facility] Cardiology Progress Note PROBLEM LIST: Peripheral angiogram 04-30-25 with left SFA with 80-90% proximal stenosis becoming 100% mid-distal [employer] and reconstitutes at the popliteal artery; right SFA with proximal focal 70-80% stenosis Attempted/failed revascularization of the left SFA [employer] given excessive contrast and radiation use the procedure was discontinued 10/09/2024 declotting of mechanical aortic valve by Dr. Charles Sternotomy site abscess and mediastinitis Mechanical AVR, chronic Coumadin anticoagulation Normal coronaries on 10/05/2024 left heart catheterization Monomorphic VT Morbid obesity Hypertension Dyslipidemia Uncontrolled type 2 diabetes, A1c 11.2% Left eye enucleation INTERVAL HISTORY: [ Sitting upright in the chair, denying any complaints today. No chest tightness or pressure, shortness or breath, palpitations, dizziness. INR is 2.03. Home dose of warfarin most recently was 5 mg every day except for which was 7.5 mg. No GI or bleeding, fever.] PHYSICAL EXAMINATION: Vital Signs (Last 48hrs) Date Time Temp Pulse Resp B/P (MAP) Pulse Ox O2 Delivery O2 Flow Rate FiO2 05/05/25 11:24 97.5 63 18 141/69 98 Room Air 05/05/25 07:45 98 Room Air* 0 05/05/25 07:21 97.5 70 18 132/72 93 Room Air 05/05/25 03:47 97.7 65 20 126/62 95 Room Air 05/05/25 00:00 98.1 63 20 115/94 97 Room Air 05/04/25 20:00 97 Room Air* 0 05/04/25 20:00 98.4 72 20 131/62 95 Room Air 05/04/25 16:00 97.9 70 18 137/64 96 Room Air 05/04/25 11:00 97.9 69 18 144/67 95 Room Air 05/04/25 07:00 97.9 76 18 147/80 96 Room Air 05/04/25 04:01 98.1 81 20 147/75 95 Room Air 05/03/25 23:49 98.1 63 20 146/77 96 Room Air 05/03/25 20:00 97 Room Air* 0 05/03/25 19:54 97.9 76 20 151/62 97 Room Air 05/03/25 16:03 97.5 73 18 123/61 100 Room Air 05/03/25 12:28 98.1 72 18 131/67 97 Room Air General: Resting comfortably, no acute distress. HEENT: Atraumatic. Hearing is intact. No facial asymmetry, nasal discharge, left eye enucleation Cardiovascular: Rhythm and rate regular. No murmur. Mechanical valve sounds noted. No edema. Respiratory: Lungs clear to the bases. No retractions, wheezes or rhonchi. Gastrointestinal: Benign, soft, nontender, nondistended. Extremities: No amputations. Range of motion is grossly normal. Venous stasis changes. Neurology/Psychiatry: No tremors. Speech is clear. Alert and oriented x 3. Cooperative and pleasant. LABORATORY DATA: [ Laboratory Tests Test 05/04/25 15:41 05/04/25 18:38 05/04/25 20:54 05/05/25 04:58 Whole Blood Glucose 198 MG/DL (70-110) H 189 MG/DL (70-110) H Prothrombin Time 17.2 SEC (9.6-11.6) H 20.1 SEC (9.6-11.6) H Prothromb Time International Ratio 1.71 (0.85-1.15) H 2.03 (0.85-1.15) H Activated Partial Thromboplast Time 53.4 SEC (26.3-35.5) H White Blood Count 10.9 K/uL (4.8-10.8) H Red Blood Count 4.49 MIL/uL (4.00-5.50) Hemoglobin 11.6 g/dL (12.0-16.0) L Hematocrit 36.2 % (36-48) Mean Corpuscular Volume 80.6 fL (79-99) Mean Corpuscular Hemoglobin 25.8 pg (27.0-33.0) L Mean Corpuscular Hemoglobin Concent 32.0 g/dL (32.0-36.0) Red Cell Distribution Width 15.9 % (11.0-15.5) H Platelet Count 353 K/uL (130-400) Mean Platelet Volume 9.4 fL (7.5-10.5) Nucleated Red Blood Cells 0.0 % (0.0-0.19) Sodium Level 132 mmol/L (136-145) L Potassium Level 4.2 mmol/L (3.5-5.1) Chloride Level 98 mmol/L (101-111) L Carbon Dioxide Level 26 mmol/L (21-32) Blood Urea Nitrogen 11 mg/dL (7-18) Creatinine 0.6 mg/dL (0.5-1.0) Glomerular Filtration Rate Calc 99 mL/min (>90) Random Glucose 204 mg/dL (70-105) H Total Calcium 9.0 mg/dL (8.5-10.1) Test 05/05/25 05:14 05/05/25 11:26 Whole Blood Glucose 196 MG/DL (70-110) H 249 MG/DL (70-110) H ] RADIOLOGY: [] PLAN: [Patient INR is 2.03 today. She can be discharged with her previous warfarin dose 5 mg every day except for which is 7.5 mg. She will have her INR tested on this coming Tuesday at [facility]. Continue lisinopril, metoprolol, atorvastatin. She should be on aspirin.] MARGUERITE MCKEON PAC May 05, 2025 12:03
--- NOTE | 2025-05-05 12:11 | PN ---
[facility] PROGRESS NOTE Date of Service: May 05, 2025 Time of Service: 12:11 HISTORY OF PRESENT ILLNESS: PCP: Brandy Verde DO Admission date: 04/30/25 CC: s/p left heart cath: for Heparin bridge with Coumadin This is a 64-year-old female that presents in ED as a direct admit patient underwent left heart catheterization today with Dr. Matthew lloyd given to patient has a history of mechanical heart valve her Coumadin was held for four days she will need heparin drip to bridge with Coumadin to reach therapeutic INR level to 2-3. Reports she is on Coumadin 5 mg Tuesday through Tuesday accept /Tuesday is 2.5 mg and Tuesday 5 mg. 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 Patient denied chest pain or shortness for breath. SUBJECTIVE: 05/01/2025: Patient was seen and examined at bedside. She is resting comfortably on chair and reports no acute events overnight. She will be started on Coumadin 7.5 mg and continues on heparin drip. The goal INR is 2-3 before discharge. All labs have been reviewed. Due to hyperglycemia, we will add Lantus to medium insulin sliding scale. 05/02/2025: Patient was seen and examined at bedside. She is resting comfortably on chair and reports no acute events overnight. Her INR is 1.08. She received Coumadin 7.5 mg yesterday and will receive another 7.5mg dose today. She continues on heparin drip. All labs have been reviewed. Due to uncontrolled hyperglycemia, we will increase Lantus and add regular insulin while continuing medium insulin sliding scale. 05/03/2025: Patient was seen and examined at bedside. Her INR has improved to 1.25 today. She will be given a single dose of 10 mg Coumadin today. Blood glucose levels have shown improvement. We will continue current management and we will continue to monitor patient and follow Cardiology recommendations. 05/04/2025: Patient was seen and examined at bedside. Her INR has improved to 1.59 today. She will be given a 7.5 mg Coumadin dose today. She continues on heparin drip. Blood glucose levels are still elevated and we will increase her Lantus and regular insulin dose. No acute events reported from overnight. We will continue to monitor patient and follow Cardiology recommendations. REVIEW OF SYSTEMS CONSTITUTIONAL: Denies fevers, chills, or night sweats. NEUROLOGICAL: Denies headache, amaurosis fugax, motor weakness, sensory deficit, vertigo/spinning sensation, gait abnormalities, or tremors. ENT: No hearing loss, otalgia, otorrhea, rhinitis, rhinorrhea, hoarseness, or sore throat. CARDIOVASCULAR: Denies any exertional angina, dyspnea on exertion, orthopnea, paroxysmal nocturnal dyspnea, palpitations, life-threatening arrhythmias, claudication. PULMONARY: Denies any shortness of breath, cough, phlegm/sputum, hemoptysis, pleuritic chest pain. SLEEP: Denies morning headaches, daytime somnolence or napping. Denies difficulty falling asleep, staying asleep, waking from sleep. Denies knowledge of snoring. GASTROINTESTINAL: Denies any type of dysphagia to either liquids or solids. Denies nausea, vomiting, pyrosis, early satiety, abdominal pain, diarrhea, constipation, or changes in stool consistency or caliber. Denies coffee-ground emesis, hematemesis, hematochezia, or melanotic stools. GENITOURINARY: Denies frequency, urgency, nocturia, hematuria or incontinence (Storage/Irritative symptoms.) Low urinary stream, straining to void, urinary intermittency or hesitancy, splitting of the voiding stream, terminal dribbling. PHYSICAL EXAM GENERAL APPEARANCE: The patient is awake, alert, and oriented, in no acute ca rdiopulmonary distress. NEUROLOGICAL: Cranial nerves II-XII grossly intact. Motor is 5/5 in bilateral upper and lower extremities proximal to distal. No sensory deficits. HEENT: Face is symmetric. NECK: Supple. No JVD. No thyromegaly. No submental, submandibular, pre- /postauricular, occipital or supraclavicular lymphadenopathy. CHEST: Normal chest expansion. No Telemetry. LUNGS: Absence of any rales, rhonchi or any wheezing. CARDIOVASCULAR: Regular. S1 and S2 normal. No appreciable rubs, murmurs or gallops. ABDOMEN: Soft, nontender, and nondistended. There is no rebound, voluntary guarding, or rigidity. : Deferred. No Tineo. EXTREMITIES: Non-edematous and not cyanotic. No clubbing. Good capillary refill. SKIN: No skin breakdown. Vital Signs (last 8hr) Date Time Temp Pulse Resp B/P (MAP) Pulse Ox O2 Delivery O2 Flow Rate FiO2 05/05/25 11:24 97.5 63 18 141/69 98 Room Air 05/05/25 07:45 98 Room Air* 0 21 05/05/25 07:21 97.5 70 18 132/72 93 Room Air LABS: Laboratory: Test 05/05/25 11:26 05/05/25 04:58 05/04/25 18:38 05/04/25 04:02 Range/Units Whole Blood Glucose 249 H 70-110 MG/DL White Blood Count 10.9 H 4.8-10.8 K/uL Red Blood Count 4.49 4.00-5.50 MIL/uL Hemoglobin 11.6 L 12.0-16.0 g/dL Hematocrit 36.2 36-48 % Mean Corpuscular Volume 80.6 79-99 fL Mean Corpuscular Hemoglobin 25.8 L 27.0-33.0 pg Mean Corpuscular Hemoglobin Concent 32.0 32.0-36.0 g/dL Red Cell Distribution Width 15.9 H 11.0-15.5 % Platelet Count 353 130-400 K/uL Mean Platelet Volume 9.4 7.5-10.5 fL Nucleated Red Blood Cells 0.0 0.0-0.19 % Prothrombin Time 20.1 H 9.6-11.6 SEC Prothromb Time International Ratio 2.03 H 0.85-1.15 Sodium Level 132 L 136-145 mmol/L Potassium Level 4.2 3.5-5.1 mmol/L Chloride Level 98 L 101-111 mmol/L Carbon Dioxide Level 26 21-32 mmol/L Blood Urea Nitrogen 11 7-18 mg/dL Creatinine 0.6 0.5-1.0 mg/dL Glomerular Filtration Rate Calc 99 >90 mL/min Random Glucose 204 H 70-105 mg/dL Total Calcium 9.0 8.5-10.1 mg/dL Activated Partial Thromboplast Time 53.4 H 26.3-35.5 SEC Immature Granulocyte % (Auto) 0.9 0-1 % Neutrophils (%) (Auto) 63.9 40.0-77.0 % Lymphocytes (%) (Auto) 23.4 21.0-51.0 % Monocytes (%) (Auto) 6.7 3.0-13.0 % Eosinophils (%) (Auto) 4.8 0.0-8.0 % Basophils (%) (Auto) 0.3 0.0-5.0 % Neutrophils # (Auto) 6.6 1.8-7.7 K/uL Lymphocytes # (Auto) 2.4 1.0-4.8 K/uL Monocytes # (Auto) 0.7 0.1-1.0 K/uL Eosinophils # (Auto) 0.50 0.00-0.70 K/uL Basophils # (Auto) 0.03 0.00-0.20 K/uL Absolute Immature Granulocyte (auto 0.09 0-1 K/uL Current Medications Medications (Trade) Dose Ordered Sig/Shante Route PRN Reason Start Time Stop Time Status Last Admin Dose Admin Acetaminophen (TYLenol 325MG TAB) 650 mg Q4H PRN PO TEMPERATURE GREATER THAN 101.5 04/30/25 15:00 05/30/25 14:59 Atorvastatin Calcium (LIPItor 40MG) 40 mg HS PO 04/30/25 21:00 05/30/25 20:59 05/04/25 20:49 40 MG Famotidine (Pepcid 20mg Tab) 20 mg BID PO 04/30/25 21:00 05/30/25 20:59 05/05/25 08:39 20 MG Heparin Sodium (Porcine) (HEParin 5,000 UNIT VIAL) *calculation based on ACTUAL B... AD PRN IV HEPARIN PROTOCOL 04/30/25 19:30 05/30/25 19:29 04/30/25 18:33 8,000 UNIT Heparin Sodium/ Dextrose 250 ml @ 0 mls/hr PROTOCOL IV 04/30/25 15:00 05/30/25 14:59 05/04/25 19:49 13.21 MLS/HR Insulin Glargine (LANtus 100 UNITS/ML 10 ML VIAL) 10 units HS SQ 05/01/25 21:00 05/02/25 14:25 DC 05/01/25 21:02 10 UNITS Insulin Glargine (LANtus 100 UNITS/ML 10 ML VIAL) 15 units HS SQ 05/02/25 21:00 05/04/25 14:28 DC 05/03/25 20:21 15 UNITS Insulin Glargine (LANtus 100 UNITS/ML 10 ML VIAL) 18 units HS SQ 05/04/25 21:00 06/03/25 20:59 05/04/25 20:58 18 UNITS Insulin Human Regular (humuLIN R 100 UNIT/ML 3ML) 6 unit TIDAC SQ 05/02/25 17:00 05/03/25 16:33 DC 05/03/25 15:54 6 UNIT Insulin Human Regular (humuLIN R 100 UNIT/ML 3ML) 6 unit TIDAC SQ 05/03/25 17:00 05/04/25 14:28 DC 05/04/25 12:21 6 UNIT Insulin Human Regular (humuLIN R 100 UNIT/ML 3ML) 8 unit TIDAC SQ 05/03/25 17:00 05/03/25 16:35 DC Insulin Human Regular (humuLIN R 100 UNIT/ML 3ML) 8 unit TIDAC SQ 05/04/25 17:00 06/03/25 16:59 05/05/25 06:06 8 UNIT Insulin Human Regular (humuLIN R 100 UNIT/ML 3ML) INSULIN SLIDING SCAL... ACHS SQ 04/30/25 16:30 05/30/25 16:29 05/05/25 06:03 4 UNIT Lactulose (Constulose 20gm/ 30ml Udcup) 20 gm BID PRN PO CONSTIPATION 04/30/25 15:00 05/30/25 14:59 Lisinopril (Prinivil 20mg) 20 mg DAILY PO 05/01/25 09:00 05/31/25 08:59 05/05/25 08:40 20 MG Magnesium Sulfate 50 ml @ 0 mls/hr PROTOCOL PRN IV low mag level 04/30/25 16:00 05/30/25 15:59 05/03/25 08:56 25 MLS/HR Metoprolol Tartrate (loprESSOR) 25 mg BID PO 04/30/25 21:00 05/30/25 20:59 05/05/25 08:40 25 MG Ondansetron HCl (zoFRAN 4MG INJ) 4 mg Q6H PRN IVP NAUSEA/VOMITING 04/30/25 15:00 05/30/25 14:59 Potassium Chloride 100 ml @ 100 mls/hr AD PRN IV POTASSIUM PROTOCOL 04/30/25 16:00 05/30/25 15:59 Potassium Chloride (K-Dur/Klor-Con 20meq) 20 meq AD PRN PO POTASSIUM PROTOCOL 04/30/25 16:00 05/30/25 15:59 05/03/25 08:56 20 MEQ Potassium Chloride (KCl 10% Elixir 20meq/15ml) 20 meq AD PRN PO POTASSIUM PROTOCOL 04/30/25 16:00 05/30/25 15:59 DIAGNOSTICS / RADIOLOGY: [ ] ASSESSMENT: Subtherapeutic INR POA Aortic valve stenosis with mechanical valve replacement on Coumadin POA Uncontrolled Hyperglycemia, POA Peripheral artery disease POA Post left heart catheterization 04/30/2025 POA Morbid obesity chronic problems: HTN, HLD, DM PLAN: Subtherapeutic INR, Aortic valve stenosis with mechanical valve replacement on Coumadin * The patient was admitted for Coumadin Heparin bridging with an INR goal of 3- 3.5 * The patient denies any cardiac symptoms or anginal equivalents * Keep on telemetry, monitor / replace electrolytes as needed * Continue IV Heparin infusion per protocol * INR has improved to 1.59 today. * Give 7.5 mg Coumadin today. * Repeat PT, APTT and INR as per protocol. * Follow Cardiology recommendations. Uncontrolled Hyperglycemia * Increase regular insulin to 8U TID * Increase Lantus to 18U daily * Maintain on insulin sliding scale. * Measure Blood glucose at repeat intervals. Peripheral artery disease * She underwent a peripheral angiogram on 04-30-25 that showed: Right superficial femoral artery: Proximal focal 70-80% stenosis. * Left superficial femoral artery: 80-90% proximal stenosis becoming 100% mid- distal SAWMILL MOULDER OPERATOR and reconstitutes at the popliteal artery. * Attempted/failed revascularization of the left SFA SAWMILL MOULDER OPERATOR given excessive contrast and radiation use the procedure was discontinued GI prophylaxis: Famotidine 20 mg b.i.d. p.o. DEEPA CAMEJO MD May 05, 2025 12:11
[2025-05-05] MEDS ORDERED: 0.9% NACL 250ML 250 ML IV SCH (14:00)
[2025-05-05] MEDS ORDERED: 0.9% NACL 250ML 250 ML IV ONE (14:00)
--- NOTE | 2025-05-05 14:00 | DS ---
Discharge Summary Hospital Course Summary: This is a case of a 64-year-old female with past medical history of hypertension, M2 , hyperlipidemia ,mechanical aortic valve replacement with chronic anticoagulation with coumadin , PAD, who was directly admitted from cardiology office for warfarin bridging after it was held for recent peripheral angiogram. On admission her labs were notable for WBC 10.5, hemoglobin 12.7, sodium 133, glucose 253, alkaline phosphatase 139. She remained asymptomatic throughout her stay. She was started on heparin drip and received 3 doses of 7.5 mg on 1 dose of 10 mg of warfarin, resulting in improvement of INR from 1.25- 2.03. Her blood glucose was elevated in the 250-300s, which were improved after increasing the Lantus dose to 18 units, insulin regular 8 units t.i.d. a.c., along with sliding scale. Today she is seen and examined at the bedside. She is hemodynamically stable with blood pressure in 130s over 70s, heart rate 60s to 70s, SpO2 greater than 95% on room air. Labs show sodium 132, chloride 98, glucose in 190s to 200s. She reports feeling well with no complaints and acknowledges eating multiple Deserts which likely contributed to her hyperglycemia. She is able to ambulate comfortably without any dizziness, tolerating oral feeds. She has been cleared by Cardiology for discharge. She is instructed to continue warfarin 5 mg daily with an increased dose of 7.5 mg on and to repeat PT INR on Tuesday at [facility] and to follow up with Dr. Rodrigues in 2 weeks. Obstetrics Tech(s): Cardiology consult Assessment: History of mechanical aortic valve replacement Anticoagulant long-term use PAD Plan: [#PAD She underwent a peripheral angiogram 04-30-25 that showed : Right superficial femoral artery: Proximal focal 70-80% stenosis. Left superficial femoral artery: 80-90% proximal stenosis becoming 100% mid- distal ENVIRONMENTAL SERVICES TECH and reconstitutes at the popliteal artery. Attempted/failed revascularization of the left SFA ENVIRONMENTAL SERVICES TECH given excessive contras and radiation use the procedure was discontinued The patient was admitted for coumadin bridging with an INR goal of 2-3 The patient groin vascular access site appears clean The patient denies any cardiac symptoms or anginal equivalents Presenting ECG non ischemic, no telemetry event noted Keep on telemetry , monitor / replace electrolytes as needed Initiate IV Heparin infusion per protocol Start Coumadin 5mg PO with INR goal of 2-3 ] Procedure(s): PATIENT: HEMAL WHITTAKER MR#: [id number] : 1960 SEX: F AGE: 64 LOCATION: 2AH ORDER 30 STATUS: ADM IN REPORT#: [id number] SERVICE 28 REASON: s/p catheterization ORDERING PHYSICIAN: HUE RODRIGUES MD PROCEDURE: CXR1VW - CHEST 1VW EXAM: CR Chest, 1 View. CLINICAL HISTORY: s/p catheterization COMPARISON: None provided. FINDINGS: Sternal wire. LUNGS: The lungs show no infiltrate or other acute finding. PLEURAL SPACES: No pleural effusion or pneumothorax. MEDIASTINUM: The cardiomediastinal silhouette is mildly enlarged with pulmonary vascular congestion. BONES: No acute osseous abnormality. IMPRESSION: Stable cardiomegaly with pulmonary congestion. /[place] DICTATED BY: KIM BURKETT Jr., MD DATE: 05/02/25629 ELECTRONICALLY SIGNED BY: KIM BURKETT Jr., MD DATE: 05/02/25629 Assessment/Plan: ASSESSMENT: Subtherapeutic INR POA Aortic valve stenosis with mechanical valve replacement on Coumadin POA Uncontrolled Hyperglycemia, POA Peripheral artery disease POA Post left heart catheterization 04/30/2025 POA Morbid obesity chronic problems: HTN, HLD, DM PLAN: ADMISSION DATE : 04/30/2025 DISCHARGE DATE : 05/05/2025 DISPOSITION : Home CONDITION : Stable Obstetrics Tech(s) : Cardiology consult Dr. Rodrigues FOLLOW UP APPOINTMENTS : Follow up with PCP, follow up with Dr. Rodrigues hearing aid repairer within 2 weeks PROCEDURES : None IMAGING (s) : Chest x-ray MICROBIOLOGY : None ACTIVITY : ad amanda HOME MEDICATIONS : Continued NEW MEDICATIONS : None TEACHING : The patient was instructed to present to the nearest Emergency Department or call 911 should their symptoms return or worsen. Discharge Instructions: Follow up with PCP in 2-3 days Follow up with , [facility] [employer] within 2 weeks Repeat PT INR on Tuesday at [facility] Continue taking warfarin 5 mg dose daily except on , when u will take 7.5mg and continue Aspirin, lisinopril, metoprolol, atorvastatin as per Cardiology recommendations Monitor for new leg pain, coolness, color changes , non healing wounds or worsening claudication Your blood sugars have been running high in the hospital 250-300s, [Hba1C 11], continue metformin and please coordinate with your PCP on shelter management of DM Monitor for symptoms like chest pain, SOB, bleeding or bruising, and seek immediate medical attention in such scenario Home Medications: Active Scripts Metoprolol Tartrate (Lopressor) 25 Mg Tab, 25 MG PO BID for 30 Days, #60 TAB 1 Refill Prov:MEGHANN PHILLIP MD 10/17/24 Lisinopril (Lisinopril) 20 Mg Tablet, 20 MG PO DAILY for 30 Days, #30 TAB 1 Refill Prov:MEGHANN PHILLIP MD 10/17/24 Reported Medications Warfarin Sodium (Warfarin Sodium) 7.5 Mg Tablet, 1 TAB PO QWEEK for 30 Days, #30 TAB 0 Refills 04/30/25 Warfarin Sodium (Warfarin Sodium) 5 Mg Tablet, 1 TAB PO AD for 30 Days, #30 TAB 0 Refills 04/30/25 Furosemide (Furosemide) 40 Mg Tablet, 1 TAB PO DAILY for 30 Days, #30 TAB 0 Refills 04/30/25 Aspirin (ASPIRIN 81MG CHEW TAB) 81 Mg Tab.chew, 81 MG PO DAILY, TAB.CHEW 10/30/24 Potassium Chloride (Potassium Chloride) 10 Meq Capsule.er, 10 MEQ PO BID, CAP 10/30/24 Atorvastatin Calcium (LIPITOR) 40 Mg Tablet, 40 MG PO HS, TAB 09/18/24 Fish Oil/Dha/Epa (Fish Oil 1,200 mg Fish Oil) 1,200 Mg-144 Mg-216 Mg Capsule, 1 EACH PO DAILY, CAP 09/18/24 Metformin HCl (Metformin HCl) 1,000 Mg Tablet, 1000 MG PO BID, TAB 09/18/24 Discontinued Reported Medications Warfarin Sodium (Warfarin Sodium) 5 Mg Tablet, 5 MG PO AD, TAB 10/30/24 Discontinued Scripts [Warfarin Sodium] 7.5 MG TAB No Conflict Check, 7.5 MG PO WARF for 30 Days, #30 1 Refill Prov:MEGHANN PHILLIP MD 10/17/24 Furosemide (Furosemide) 40 Mg Tablet, 1 TAB PO BID for 30 Days, #60 TAB 1 Refill Prov:MEGHANN PHILLIP MD 10/17/24 Time spent arranging discharge: 31-60 minutes ATTESTATION BY PHYSICIAN I have seen and examined the patient. I reviewed the documentation, medical decision making, and treatment plan as noted by the resident physician above. I agree with the findings and plan of care. ALMA LIMON MD, PRIYANKA MD May 05, 2025 14:00
[2025-05-05] MEDS: WARFARIN SODIUM 5 MG TAB PO ONE (15:41)
--- NOTE | 2025-05-05 16:20 | NUR ---
GIVEN DISMISSAL INSTRUCTIONS, VERBALIZED UNDERSTANDING. REMOVED SALINE LOCK FROM LEFT HAND AND LEFT FOREARM, BOTH SITES WITHOUT REDNESS NOTED. REMOVED TELE PACK. HEPARIN DRIP WAS DCD AT 2PM.
--- NOTE | 2025-05-05 16:50 | NUR ---
TAKEN TO PRIVATE CAR ALONG WITH PERSONAL BELONGINGS VIA WHEELCHAIR BY NURSE DARBY.
== END 2025-05-05 16:39 | disposition home or self-care (01) | DRG 300 ==
LOC: EDH 13:51 → DIRECT 13:52 → 2AH 19:17
PROVIDERS: ADMIT Internal Medicine; ATTEND Internal Medicine
DX: E11.51 Type 2 diabetes mellitus with diabetic peripheral angiopathy without gangrene (principal); Z68.41 Body mass index [BMI] 40.0-44.9, adult; E11.65 Type 2 diabetes mellitus with hyperglycemia; Z79.01 Long term (current) use of anticoagulants; I35.0 Nonrheumatic aortic (valve) stenosis; I10 Essential (primary) hypertension; E66.01 Morbid (severe) obesity due to excess calories; Z95.2 Presence of prosthetic heart valve; R79.1 Abnormal coagulation profile; E78.5 Hyperlipidemia, unspecified; Z79.899 Other long term (current) drug therapy
CPT/HCPCS: 36415; 71045; 80048; 80053; 82948; 83036; 83735; 85025; 85027; 85610; 85730; G0378; J1644; J1815; J3475